=== PATIENT | male | born 1930 | race Two or more races ===

== ENCOUNTER 2017-03-30 12:11 | Inpatient (IN) | payer MEDICARE, OTHER ==
[~2017-03-30] VITALS: Ht 182.9 cm; Wt 92.5 kg
[2017-03-30 14:45] VITALS: BP 119/68
[2017-03-30] MEDS ORDERED: Z GUARD REMEDY PASTE 57 GM TUBE TOP PRN (15:30)
[2017-03-30] MEDS ORDERED: DIGO125T PO (15:51)
[2017-03-30] MEDS ORDERED: RASA1TAB PO (15:51)
[2017-03-30] MEDS ORDERED: CALC-246 PO (15:51)
[2017-03-30] MEDS ORDERED: SITA50TA PO (15:51)
[2017-03-30] MEDS ORDERED: WARF10TA2 PO (15:51)
[2017-03-30] MEDS ORDERED: CARB-93 PO (15:51)
[2017-03-30] MEDS ORDERED: INSU100V10 SQ (15:51)
[2017-03-30] MEDS ORDERED: ROSU20TA PO (15:51)
[2017-03-30] MEDS ORDERED: VITA-85A PO (15:51)
[2017-03-30] MEDS ORDERED: MV-M1TAB38 PO (15:51)
[2017-03-30] MEDS ORDERED: GLIM4TAB3 PO (15:51)
--- NOTE | 2017-03-30 18:55 | NUR ---
pt arrived at 1425 @ acute rehab unit on a gurney with daughter arely parham. pt vitals assessed. Bp 119/68 Temp 98.4 RR 22 02 sat 96 with 2L oxygen. pt no sign of acute distress. all belongings and medications reconciled. NIH stroke, rehab physical and initail assessment. core measures initiated. vte pumps applied. family will stay to the night. consent signs for overnight stay. will continue to endorse orders to venetian blind worker nurse.
[2017-03-30] MEDS ORDERED: WARFARIN SODIUM 7.5 MG TABLET PO SCH (19:00)
[2017-03-30 20:00] VITALS: BP 130/77
[2017-03-30] MEDS: IV D5 1/2 NS 1000 ML 1,000 ML IV PRN (21:38)
[2017-03-30] MEDS: ATORVASTATIN 10 MG TABLET PO SCH (21:44)
--- NOTE | 2017-03-31 05:21 | NUR ---
PATIENT SLEPT MOST OF THE NIGHT, NO SOB NO CHEST PAIN, NO COMPLAIN OF PAIN AT THIS TIME, CONT IV HYDRATION NO COUGHING, NO CONGESTION NOTED, TURN AND REPOSITION, INCONTINENT OF BLADDER, KEPT CLEAN AND DRY, DAUGHTER STAY OVERNIGHT, CONT TO MONITOR.
[2017-03-31 06:53] LABS: EOSINOPHILS # (AUTO) 0.1 K/uL (0.0-0.7); EOSINOPHILS % (AUTO) 0.3 % (0.0-7.0); HEMATOCRIT 37.5 % (40-50); HEMOGLOBIN 12.7 G/DL (14.0-18.0); LYMPHOCYTES # (AUTO) 1.7 K/UL (0.8-4.8); LYMPHOCYTES % (AUTO) 9.1 % (20.5-51.5); MEAN CORPUSCULAR HEMOGLOBIN 33.6 UUG (27.0-31.0); MEAN CORPUSCULAR HGB CONC 34 g/dL (32.0-37.0); MEAN CORPUSCULAR VOLUME 99.5 FL (82.0-92.0); MONOCYTES # (AUTO) 1.3 K/UL (0.1-1.30); MONOCYTES % (AUTO) 7.1 % (0.0-11.0); NEUTROPHILS # (AUTO) 15.8 K/UL (1.8-8.9); NEUTROPHILS % (AUTO) 83.5 % (38.5-71.5); PLATELET COUNT (AUTO) 125 K/UL (150-450); RED BLOOD CELL COUNT(AUTO) 3.77 MIL/UL (4.7-6.1); WHITE BLOOD COUNT (AUTO) 18.9 K/UL (4.0-11.2)
[2017-03-31 07:00] VITALS: BP 125/59
[2017-03-31 07:21] LABS: ALANINE AMINOTRANSFERASE 53 U/L (16-63); ASPARTATE AMINOTRANSFERASE 29 U/L (15-37); BILIRUBIN,TOTAL 0.9 mg/dL (0.2-1.0); CARBON DIOXIDE 25 mmol/L (21-32); CHLORIDE 99 mmol/L (98-107); CHOLESTEROL 114 mg/dL (<200); CREATININE 0.8 mg/dL (0.6-1.3); GLUCOSE 166 mg/dL (74-106); HDL CHOLESTEROL 44 mg/dL (40-60); MAGNESIUM 2.1 mg/dL (1.8-2.4); PHOSPHOROUS 2.7 mg/dL (2.5-4.9); POTASSIUM 3.6 mmol/L (3.5-5.1); TRIGLYCERIDES 90 MG/DL (30-150); UREA NITROGEN, BLOOD 9 mg/dL (7-18)
--- NOTE | 2017-03-31 07:31 | NUR ---
PATIENT OWN PHYSICIAN DR DAVIS CAME IN THE MENTIONED THAT PATIENT NEEDS TO BE ON ACCUCHECKS, AND SAID PATIENT BLOOD SUGAR SHOULD BE BELOW 150, CHECKED BLOOD SUGAR IS 138, ENDORSED TO ALIE TO OBTAINED ORDER FOR ACCUCHECK AND COVERAGE.
--- NOTE | 2017-03-31 07:45 | NUR ---
RECEIVED PATIENT ASLEEP, NON-LABORED BREATHING. WITH O2 AT 2 LPM. WITH IVF INFUSING WELL OVER LEFT WRIST G20. WITH DAUGHTER AT BEDSIDE.
[2017-03-31] MEDS: GLIMEPIRIDE 4 MG TABLET PO SCH ×2 (07:50→17:52)
[2017-03-31 07:51] LABS: ALKALINE PHOSPHATASE 60 U/L (50-136)
[2017-03-31] MEDS: ACETAMINOPHEN 325 MG TABLET PO PRN ×2 (08:13→18:52)
[2017-03-31] MEDS: CARBIDOPA/LEVODOPA 25-100MG TABLET PO SCH ×4 (08:13→20:57)
[2017-03-31] MEDS: DIGOXIN 125 MCG TABLET PO SCH (08:13)
[2017-03-31] MEDS: VITAMIN B COMPLEX 1 TABLET PO SCH (08:13)
[2017-03-31] MEDS: LINAGLIPTIN 5 MG TABLET PO SCH (08:13)
[2017-03-31] MEDS ORDERED: SITAGLIPTIN PHOSPHATE 50 MG TABLET PO SCH (09:00)
[2017-03-31] MEDS ORDERED: [UNRECOGNIZED DRUG - OTHER] PO SCH (09:00)
--- NOTE | 2017-03-31 09:00 | NUR ---
PATIENT LETHARGIC, WAKES UP WITH TOUCH AND PAINFUL STIMULUS. SEEN AND EXAMINED BY DR. MOCTEZUMA ORDERED COUMADIN TO BE D/C. WAS ABLE TO TOLERATE MEDICATIONS WITH APPLE SAUCE.
[2017-03-31] MEDS ORDERED: ASPIRIN EC 325 MG TABLET.DR PO SCH (10:00)
[2017-03-31] MEDS ORDERED: DEXTROSE 50% 50 ML DISP.SYRIN IV PRN (10:45)
[2017-03-31] MEDS ORDERED: CYANOCOBALAMIN 1000 MCG/ML VIAL IM SCH (10:45)
[2017-03-31] MEDS: ASPIRIN 325 MG TABLET PO SCH (10:51)
--- NOTE | 2017-03-31 11:30 | NUR ---
IV DISLODGED AND DISCONTINUED. INSERTED NEW IV G 22 OVER LEFT FORE-ARM. PATENT AND INFUSING WELL.
[2017-03-31] MEDS: BLOOD SUGAR DIAGNOSTIC 1 EACH STRIP VI SCH ×3 (11:48→22:00)
[2017-03-31] MEDS: CYANOCOBALAMIN 1000 MCG/ML VIAL IM SCH (12:14)
[2017-03-31] MEDS: [UNRECOGNIZED DRUG - OTHER] PO SCH (13:00)
[2017-03-31] MEDS: OCUVITE WITH LUTEIN PO SCH (13:00)
[2017-03-31] MEDS: RASAGILINE MESYLATE 1 MG PO SCH (13:23)
--- NOTE | 2017-03-31 13:29 | NUR ---
DAUGHTER REFUSED OCUVITE TO BE GIVEN AND SAID MAYBE TOMORROW WHEN HE IS STRONGER. DISCUSSED RISKS AND BENEFITS BUT DAUGHTER REFUSED TO BE GIVEN TO PATIENT.
--- NOTE | 2017-03-31 13:57 | NUR ---
Aircraft Structural Repairer SW met with patient at beside to assess pt needs and provide support. The patient is an 87 male admitted s/p stroke and admitted to admitted to ARU due to significant functional decline and ambulation impairment. The patient was laying in his bed during the assessment. He was unable to participate in the interview, therefore information was obtained by the patients daughter/DPOA Yue Carl . Per daughter, the patient will return home with her at [address] [facility] [place] [address]; . The patient and daughter acknowledged his condition and the need for intervention. Social history: The patient was born and raised in [place] and grew up with his parents. He was two times, his first marriage ended in divorce after 18 years and his second in 2009 after being for 35 years. The patient has 4 children from his first marriage and an adopted child from his first 's previous marriage. The patient has 2 bacherlors degrees and 1 masters degree. 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 Per daughter, the patient has an advanced healthcare directive and is full code. The patients daughter denied any history of abuse or domestic violence for the patient. SW engaged in active listening and provided supportive counseling during the interview to address patient's depressive symptoms related to his decline in functioning. SW will continue to address issues of loss related to recent hospitalization. SW will encourage compliance with rehab goals. SW will be available as needed.
--- NOTE | 2017-03-31 14:15 | NUR ---
IV DISLODGED DURING PHYSICAL THERAPY.
[2017-03-31 18:20] LABS: *BLOOD, URINE 3+ (NEGATIVE); *COLOR,URINE Brown (YELLOW); *KETONES,URINE 2+ (NEGATIVE); NITRITE, URINE NEGATIVE (NEGATIVE); PH,URINE 5.5 (5.0-8.0); UGLUCOSE NEGATIVE (NEGATIVE)
[2017-03-31 18:38] LABS: *BILIRUBIN,URIN NEGATIVE (NEGATIVE); *CLARITY,URINE TURBID (CLEAR); *PROTEIN,URINE 2+ (NEGATIVE); LEUKOCYTE ESTERASE ,URINE 2+ (NEGATIVE)
[2017-03-31 18:42] LABS: BACTERIA,URINE MANY /HPF (NONE SEEN); MUCUS,URINE MANY /LPF (0-FEW); RBC,URINE 20-50 /HPF (0-3); WBC,URINE TNTC /HPF (0-3)
--- NOTE | 2017-03-31 19:00 | NUR ---
PAIN OVER SHOULDER RATED 6/10. TYLENOL PRN GIVEN.
[2017-03-31] MEDS ORDERED: LIDOCAINE HCL 1% 20 ML VIAL IJ PRN (19:30)
[2017-03-31 20:00] VITALS: BP 109/63
[2017-03-31] MEDS: ATORVASTATIN 10 MG TABLET PO SCH (20:57)
[2017-03-31] MEDS: CEFTRIAXONE 1 G in IV DEXTROSE 5% 50 ML IV SCH (20:57)
[2017-03-31] MEDS: IV D5 1/2 NS 1000 ML 1,000 ML IV PRN (20:58)
[2017-04-01] MEDS: BLOOD SUGAR DIAGNOSTIC 1 EACH STRIP VI SCH ×4 (06:41→21:37)
--- NOTE | 2017-04-01 07:45 | NUR ---
Received patient asleep, with daughter at bedside. With IV infusing well over left hand. Wakes up with touch and painful stimulus. Not in any form of distress. VSS. O2 at 2 LPM
[2017-04-01] MEDS: INSULIN REGULAR, HUMAN 300 UNIT/3 ML VIAL SQ PRN ×3 (07:50→17:36)
[2017-04-01] MEDS: GLIMEPIRIDE 4 MG TABLET PO SCH ×2 (07:51→17:38)
[2017-04-01 07:58] VITALS: BP 127/70
[2017-04-01] MEDS: ASPIRIN 325 MG TABLET PO SCH (09:00)
[2017-04-01] MEDS: CYANOCOBALAMIN 1000 MCG/ML VIAL IM SCH (09:00)
[2017-04-01] MEDS: LINAGLIPTIN 5 MG TABLET PO SCH (09:01)
[2017-04-01] MEDS: CARBIDOPA/LEVODOPA 25-100MG TABLET PO SCH ×3 (09:01→21:14)
[2017-04-01] MEDS: RASAGILINE MESYLATE 1 MG PO SCH (09:01)
[2017-04-01] MEDS: VITAMIN B COMPLEX 1 TABLET PO SCH (09:01)
[2017-04-01] MEDS: DIGOXIN 125 MCG TABLET PO SCH (09:02)
[2017-04-01] MEDS: [UNRECOGNIZED DRUG - OTHER] PO SCH (09:30)
[2017-04-01] MEDS: OCUVITE WITH LUTEIN PO SCH (09:30)
--- NOTE | 2017-04-01 10:23 | NUR ---
Up with OT. IV held for therapy
--- NOTE | 2017-04-01 13:18 | NUR ---
Up with physical therapy, alert and oriented. Still with slurred speech. With poor appetite. With dysuria, informed Dr. Otero. DAISY held for PT
--- NOTE | 2017-04-01 14:07 | NUR ---
REHAB TEAM CONFERENCE 04/01/17
--- NOTE | 2017-04-01 14:30 | NUR ---
RESUMED IVF. PATIENT TOLERATED THERAPY WELL. WAS EXHAUSTED. SLEEPING NOW AT BED. NON-LABORED BREATHING.
[2017-04-01] MEDS: PHENAZOPYRIDINE HCL 100 MG TABLET PO SCH ×2 (17:53→21:14)
--- NOTE | 2017-04-01 18:55 | NUR ---
For MRI in [place], as ordered by Dr Fuller. Transported via ambulance with stable V/S. Alert and oriented. With patent IV G 22 over left hand.
[2017-04-01] MEDS: PATIENT MAY USE OWN MED- MD OK PO SCH (21:00)
[2017-04-01] MEDS: CEFTRIAXONE 1 G in IV DEXTROSE 5% 50 ML IV SCH (21:12)
[2017-04-01] MEDS: METOPROLOL TARTRATE 25 MG TABLET PO SCH (21:13)
[2017-04-01] MEDS: ATORVASTATIN 10 MG TABLET PO SCH (21:14)
[2017-04-01] MEDS: ACETAMINOPHEN 325 MG TABLET PO PRN (21:30)
[2017-04-01 21:37] VITALS: BP 118/61
--- NOTE | 2017-04-01 22:33 | NUR ---
result from MRI reported to Dr. Otero but no order, left a message to Dr. Hoover ([phone]) reported by Dr. Zelaya: area of infarct bigger 6x6,compared to last exam 03/28, otherwise no evidence of hemorrhagic conversion at this time. Addendum: 04/01/17 at 2240 by KATY MOHR RN called [facility] neurology dept but office is closed ([phone]) will call in am.
[2017-04-01] MEDS: IV D5 1/2 NS 1000 ML 1,000 ML IV PRN (23:11)
--- NOTE | 2017-04-02 04:00 | NUR ---
iv kept alarming downstream occlusion but flushes ok, daughter and pt unable to sleep, iv held till am 0600 resume infusion so pt would be able to sleep, no sign of infiltration secured with tape.
--- NOTE | 2017-04-02 06:30 | NUR ---
no significant changes overnight incontinent x3 of urine,no bm.continue with ivf.vss,afebrile,meidcated x1 with tylenol for neck pain with good relief.
[2017-04-02] MEDS: PHENAZOPYRIDINE HCL 100 MG TABLET PO SCH ×3 (06:43→21:19)
[2017-04-02] MEDS: BLOOD SUGAR DIAGNOSTIC 1 EACH STRIP VI SCH ×4 (06:45→21:17)
--- NOTE | 2017-04-02 07:15 | NUR ---
PT IS ALERT AND ORIENTEDX3, PT IS CALM. LEFT SIDE WEAKNESS IS NOTED. PT IS UNABLE TO FEEL HIS LEFT SIDE. DR FROST IS MADE AWARE. DR FROST TALKED TO THE PT AND FAMILY. LEFT HAND IS SWOLLEN FROM IV BEING INFILTRATED. REMOVED THE IV. PUT A NEW ONE. ELEVATED THE EXTREMITY, ALTERNATED COLD AND WARM PACKS THROUGHOUT THE SHIFT. NO OPEN WOUNDS NOTED. IV INTACT/PATENT. NO PAIN NOTED. ALL SAFETY NEEDS ARE MET. DAUGHTER BY THE BEDSUIDE, PT IS ON RA, NO S/S OF RESPIRATORY DISTRESS NOTED.
[2017-04-02 07:42] LABS: BASOPHILS # (AUTO) 0.1 K/uL (0.0-8.0); EOSINOPHILS # (AUTO) 0.2 K/uL (0.0-0.7); EOSINOPHILS % (AUTO) 1.7 % (0.0-7.0); HEMOGLOBIN 12.9 G/DL (14.0-18.0); LYMPHOCYTES # (AUTO) 1.2 K/UL (0.8-4.8); LYMPHOCYTES % (AUTO) 9.3 % (20.5-51.5); MEAN CORPUSCULAR HEMOGLOBIN 33.3 UUG (27.0-31.0); MEAN CORPUSCULAR HGB CONC 33 g/dL (32.0-37.0); MONOCYTES # (AUTO) 0.5 K/UL (0.1-1.30); MONOCYTES % (AUTO) 3.7 % (0.0-11.0); NEUTROPHILS # (AUTO) 11.1 K/UL (1.8-8.9); NEUTROPHILS % (AUTO) 84.3 % (38.5-71.5); PLATELET COUNT (AUTO) 149 K/UL (150-450); RED BLOOD CELL COUNT(AUTO) 3.87 MIL/UL (4.7-6.1); WHITE BLOOD COUNT (AUTO) 13.1 K/UL (4.0-11.2)
[2017-04-02 08:34] LABS: ALANINE AMINOTRANSFERASE 22 U/L (16-63); ALKALINE PHOSPHATASE 86 U/L (50-136); ASPARTATE AMINOTRANSFERASE 26 U/L (15-37); BILIRUBIN,TOTAL 0.7 mg/dL (0.2-1.0); CARBON DIOXIDE 27 mmol/L (21-32); CHLORIDE 101 mmol/L (98-107); CREATININE 0.8 mg/dL (0.6-1.3); GLUCOSE 133 mg/dL (74-106); PHOSPHOROUS 2.8 mg/dL (2.5-4.9); POTASSIUM 3.1 mmol/L (3.5-5.1); UREA NITROGEN, BLOOD 9 mg/dL (7-18)
[2017-04-02 08:50] VITALS: BP 122/71
[2017-04-02] MEDS: GLIMEPIRIDE 4 MG TABLET PO SCH ×2 (08:55→18:00)
[2017-04-02] MEDS: DIGOXIN 125 MCG TABLET PO SCH (08:56)
[2017-04-02] MEDS: ASPIRIN 325 MG TABLET PO SCH (08:56)
[2017-04-02] MEDS: CYANOCOBALAMIN 1000 MCG/ML VIAL IM SCH (08:56)
[2017-04-02] MEDS: METOPROLOL TARTRATE 25 MG TABLET PO SCH ×2 (08:57→21:20)
[2017-04-02] MEDS: [UNRECOGNIZED DRUG - OTHER] PO SCH (08:58)
[2017-04-02] MEDS: OCUVITE WITH LUTEIN PO SCH (08:58)
[2017-04-02] MEDS: LINAGLIPTIN 5 MG TABLET PO SCH (08:59)
[2017-04-02] MEDS: RASAGILINE MESYLATE 1 MG PO SCH (08:59)
[2017-04-02] MEDS: VITAMIN B COMPLEX 1 TABLET PO SCH (09:00)
[2017-04-02] MEDS: LIDOCAINE 5% PATCH TD SCH (10:07)
[2017-04-02] MEDS: CARBIDOPA/LEVODOPA 25-100MG TABLET PO SCH ×3 (10:07→21:18)
--- NOTE | 2017-04-02 12:04 | NUR ---
Patient and family complains of foot drop of patient. Dr. Littlejohn aware, spoke to PT therapist regarding interventions. Provolone boot ordered to keep foot from dropping. No other incidents with patient.
[2017-04-02] MEDS: INSULIN REGULAR, HUMAN 300 UNIT/3 ML VIAL SQ PRN ×3 (13:14→21:25)
[2017-04-02] MEDS ORDERED: BARIUM SULFATE 148 GM SUSP.RECON PO ONE (14:00)
[2017-04-02] MEDS ORDERED: BARIUM SULFATE 240 ML ORAL.SUSP PO ONE (14:00)
[2017-04-02] MEDS ORDERED: POTASSIUM CHLORIDE 20 MEQ TAB.PRT.SR PO ONE ×2 (16:00→19:00)
[2017-04-02] MEDS: ACETAMINOPHEN 325 MG TABLET PO PRN (18:17)
--- NOTE | 2017-04-02 19:00 | NUR ---
PT IS LAYING IN BED COMFORTABLY. NO CHANGES NOTED. EXTREMITY IS ELEVATED, WARM PACK IS ON. MEDICATED FOR PAIN 4/10 RIGHT THIGH. ALL SAFETY NEEDS ARE MET.
--- NOTE | 2017-04-02 19:30 | NUR ---
Received patient in bed with HOB elevated. Alert and verbally responsive. Able to make needs known. Daughter Fátima at bedside. No acute distress noted. No SOB. Right hand with IV site. Patent and Intact. Infusing D5 1/2 NS continuously. Kept clean and dry. All needs attended to promptly. Call light is within reach. Will continue to monitor.
[2017-04-02] MEDS ORDERED: LIDOCAINE 5% PATCH TD ONE ×2 (20:30→21:15)
--- NOTE | 2017-04-02 20:30 | NUR ---
NON-ADMIN MED Lidocaine 5% patch 16H on, 8H off not administered. Per pharmacy they want to verify orders with doctor.
--- NOTE | 2017-04-02 20:30 | NUR ---
Dr. Littlejohn in facility examined patient and made new orders for Lidocaine 1 patch 1x now. Patient c/o pain on right neck. MD also ordered for Lidocaine 2 patches q24H 16h on 8h off. New orders acknowledged and carried out. Pharmacy made aware.
[2017-04-02] MEDS: PATIENT MAY USE OWN MED- MD OK PO SCH (21:17)
[2017-04-02] MEDS: ATORVASTATIN 10 MG TABLET PO SCH (21:20)
[2017-04-02] MEDS: CEFTRIAXONE 1 G in IV DEXTROSE 5% 50 ML IV SCH (21:22)
[2017-04-02 21:44] VITALS: BP 117/66
[2017-04-02] MEDS ORDERED: diphenhydrAMINE 25 MG CAP PO ONE ×2 (21:58→22:29)
[2017-04-02] MEDS: CLOTRIMAZOLE 1% CREAM 30 GM TUBE TOP SCH (22:00)
--- NOTE | 2017-04-02 22:00 | NUR ---
Patient c/o itching on back. Back noted with redness and red spots. Dr. Otero on unit made aware and examined patient. New orders noted and carried out. Clotrimazole 1% cream faxed over to nursing tool machine shop supervisor. Awaiting medication. All needs attended to promptly. Call light within reach. Will continue to monitor. Addendum: 04/03/17 at 0000 by FELISHA VANCE RN Per nursing tool machine shop supervisor, Lotrimin cream is not available at this time. Medication not given. Will make family aware.
[2017-04-02] MEDS: IV D5 1/2 NS 1000 ML 1,000 ML IV PRN (22:28)
[2017-04-03] MEDS: BLOOD SUGAR DIAGNOSTIC 1 EACH STRIP VI SCH ×4 (06:47→21:16)
[2017-04-03] MEDS: PHENAZOPYRIDINE HCL 100 MG TABLET PO SCH (06:50)
--- NOTE | 2017-04-03 07:05 | NUR ---
Pt received in bed, no distress noted. HOB elevated, NC at 2L, No resp distress. Daughter is at bedside. IV to Right hand intact and patent. NO s/s of infection, no infiltration noted. Plan of care discussed, bed kept low locked, Side rais up x2, Call light within reach.
[2017-04-03] MEDS: INSULIN REGULAR, HUMAN 300 UNIT/3 ML VIAL SQ PRN ×3 (08:07→17:20)
[2017-04-03 08:08] VITALS: BP 125/71
[2017-04-03] MEDS: METOPROLOL TARTRATE 25 MG TABLET PO SCH ×2 (08:08→21:04)
[2017-04-03] MEDS: LIDOCAINE 5% PATCH TD SCH ×4 (08:09→21:05)
[2017-04-03] MEDS: ASPIRIN 325 MG TABLET PO SCH (08:09)
[2017-04-03] MEDS: GLIMEPIRIDE 4 MG TABLET PO SCH ×2 (08:09→17:17)
[2017-04-03] MEDS: DIGOXIN 125 MCG TABLET PO SCH (08:09)
[2017-04-03] MEDS: LINAGLIPTIN 5 MG TABLET PO SCH (08:09)
[2017-04-03] MEDS: CARBIDOPA/LEVODOPA 25-100MG TABLET PO SCH ×3 (08:09→21:03)
[2017-04-03] MEDS: CYANOCOBALAMIN 1000 MCG/ML VIAL IM SCH ×2 (08:10→08:32)
[2017-04-03] MEDS: OCUVITE WITH LUTEIN PO SCH (08:12)
[2017-04-03] MEDS: [UNRECOGNIZED DRUG - OTHER] PO SCH (08:12)
[2017-04-03] MEDS: RASAGILINE MESYLATE 1 MG PO SCH (08:12)
[2017-04-03] MEDS: VITAMIN B COMPLEX 1 TABLET PO SCH (08:12)
[2017-04-03] MEDS: CLOTRIMAZOLE 1% CREAM 30 GM TUBE TOP SCH ×2 (17:18→21:04)
--- NOTE | 2017-04-03 17:20 | NUR ---
Pt in bed, no distress noted. Accu check 151 with 2 units of Regular insulin given. Pt's daughter is requesting to D/C IV fluids, and IV antibiotics. Dr. Otero was made aware.
--- NOTE | 2017-04-03 18:46 | NUR ---
PT seen by Dr. Otero received orders to d/c IVF and d/c IV antibiotics. Start pt on Levaquin 500mg PO q24hrs. Dr. Otero discussed plan of care with pt and daughter.
[2017-04-03] MEDS: LEVOFLOXACIN 500 MG TABLET PO SCH (18:55)
--- NOTE | 2017-04-03 19:03 | NUR ---
IV fluids discontinued, Levaquin 500mg PO given. Pt educated by on Vit 12 injection and pt agree to take medication tomorrow morning. made aware of med not given this morning, daugher refused.
[2017-04-03] MEDS: PATIENT MAY USE OWN MED- MD OK PO SCH (21:00)
[2017-04-03] MEDS: ATORVASTATIN 10 MG TABLET PO SCH (21:02)
[2017-04-03 21:18] VITALS: BP 120/75
--- NOTE | 2017-04-04 06:30 | NUR ---
pt 's daughter says ,pt had nightmare last night didn't have good sleep, right neck pain remains the same ,lidoderm patch applied last night till this morning, per daughter he didn't get his patch in am. with good relief per pt, tolerating well with meds in apple sauce and thin liquid, no coughing noted.incontinent, vss,afebrile, all needs attended kept clean and dry.
[2017-04-04] MEDS: BLOOD SUGAR DIAGNOSTIC 1 EACH STRIP VI SCH ×4 (06:41→20:13)
[2017-04-04] MEDS: ACETAMINOPHEN 325 MG TABLET PO PRN ×2 (06:43→12:10)
--- NOTE | 2017-04-04 07:05 | NUR ---
Patient received from shift coordinator, resting comfortably in bed, no signs of acute distress noted. VS WNL, no complaints of pain at this time. No other verbalized needs at this time, family observed at bedside, no needs noted. Safety and fall precautions maintained, call light within reach.
[2017-04-04] MEDS: GLIMEPIRIDE 4 MG TABLET PO SCH ×2 (11:00→17:15)
[2017-04-04] MEDS: CYANOCOBALAMIN 1000 MCG/ML VIAL IM SCH (11:00)
[2017-04-04] MEDS: ASPIRIN 325 MG TABLET PO SCH (11:00)
[2017-04-04] MEDS: DIGOXIN 125 MCG TABLET PO SCH (11:01)
[2017-04-04] MEDS: VITAMIN B COMPLEX 1 TABLET PO SCH (11:01)
[2017-04-04] MEDS: METOPROLOL TARTRATE 25 MG TABLET PO SCH ×2 (11:01→20:11)
[2017-04-04] MEDS: OCUVITE WITH LUTEIN PO SCH (11:01)
[2017-04-04] MEDS: [UNRECOGNIZED DRUG - OTHER] PO SCH (11:01)
[2017-04-04] MEDS: CARBIDOPA/LEVODOPA 25-100MG TABLET PO SCH ×3 (11:02→20:11)
[2017-04-04] MEDS: RASAGILINE MESYLATE 1 MG PO SCH (11:02)
[2017-04-04] MEDS: LIDOCAINE 5% PATCH TD SCH (11:02)
[2017-04-04] MEDS: LINAGLIPTIN 5 MG TABLET PO SCH (11:02)
[2017-04-04] MEDS: CLOTRIMAZOLE 1% CREAM 30 GM TUBE TOP SCH ×2 (11:02→21:21)
[2017-04-04] MEDS: INSULIN REGULAR, HUMAN 300 UNIT/3 ML VIAL SQ PRN (12:12)
[2017-04-04] MEDS: LEVOFLOXACIN 500 MG TABLET PO SCH (18:28)
[2017-04-04 20:00] VITALS: BP 115/64
[2017-04-04] MEDS: ATORVASTATIN 10 MG TABLET PO SCH (20:10)
[2017-04-04] MEDS ORDERED: TRAZODONE 50 MG TABLET PO SCH (21:00)
[2017-04-04] MEDS: PATIENT MAY USE OWN MED- MD OK PO SCH (21:00)
[2017-04-04] MEDS ORDERED: TRAZODONE 50 MG TABLET GT SCH (21:00)
[2017-04-04 21:39] VITALS: BP 115/64
[2017-04-05] MEDS: ACETAMINOPHEN 325 MG TABLET PO PRN ×2 (00:08→10:18)
[2017-04-05] MEDS: BLOOD SUGAR DIAGNOSTIC 1 EACH STRIP VI SCH ×4 (06:09→20:48)
--- NOTE | 2017-04-05 06:59 | NUR ---
pt had trazadone 25mg last night but still unable to sleep ,incontinent of bladder had x5 diaper change. no bm . all needs attended,call light at reached.
[2017-04-05 07:13] LABS: BASOPHILS % (AUTO) 0.2 % (0.0-2.0); EOSINOPHILS # (AUTO) 0.3 K/uL (0.0-0.7); EOSINOPHILS % (AUTO) 2.7 % (0.0-7.0); HEMATOCRIT 36.6 % (40-50); HEMOGLOBIN 12.3 G/DL (14.0-18.0); LYMPHOCYTES # (AUTO) 1.5 K/UL (0.8-4.8); LYMPHOCYTES % (AUTO) 13.6 % (20.5-51.5); MEAN CORPUSCULAR HEMOGLOBIN 33.7 UUG (27.0-31.0); MEAN CORPUSCULAR HGB CONC 34 g/dL (32.0-37.0); MEAN CORPUSCULAR VOLUME 100.4 FL (82.0-92.0); MONOCYTES # (AUTO) 0.4 K/UL (0.1-1.30); MONOCYTES % (AUTO) 3.2 % (0.0-11.0); NEUTROPHILS # (AUTO) 8.9 K/UL (1.8-8.9); NEUTROPHILS % (AUTO) 80.3 % (38.5-71.5); RED BLOOD CELL COUNT(AUTO) 3.64 MIL/UL (4.7-6.1); WHITE BLOOD COUNT (AUTO) 11.1 K/UL (4.0-11.2)
[2017-04-05] MEDS ORDERED: TRAZODONE 50 MG TABLET PO SCH ×3 (07:14→21:00)
[2017-04-05 07:18] LABS: ALANINE AMINOTRANSFERASE 28 U/L (16-63); ALKALINE PHOSPHATASE 83 U/L (50-136); ASPARTATE AMINOTRANSFERASE 41 U/L (15-37); BILIRUBIN,TOTAL 0.6 mg/dL (0.2-1.0); CARBON DIOXIDE 26 mmol/L (21-32); CHLORIDE 106 mmol/L (98-107); CREATININE 0.8 mg/dL (0.6-1.3); GLUCOSE 96 mg/dL (74-106); MAGNESIUM 1.7 mg/dL (1.8-2.4); PHOSPHOROUS 3.4 mg/dL (2.5-4.9); POTASSIUM 3.3 mmol/L (3.5-5.1); TOTAL PROTEIN, SERUM 7.4 g/dL (6.4-8.2); UREA NITROGEN, BLOOD 10 mg/dL (7-18)
[2017-04-05 07:21] LABS: PLATELET COUNT (AUTO) 196 K/UL (150-450)
[2017-04-05 07:30] VITALS: BP 118/81
--- NOTE | 2017-04-05 07:30 | NUR ---
RECIEVED PT IN BED, HOB UP AT 30DEGREES. AWAKE, ALERT AND ORIENTEDX3. FACE IS EVEN AND SYMMETRICAL. RIGHT EYE IS SMALLER THAN LEFT. DENIES BLURRING OF VISION. SPEECH IS CLEAR AND PT FOLLOWS COMMANDS. PT HAS LEFT HEMIPARESIS FROM A RECENT ACUTE STROKE. NO APPARENT RESPIRATORY DISTRESS NOTED. AFEBRILE.
--- NOTE | 2017-04-05 08:30 | NUR ---
VSS. PT IS REQUESTINGTO HAVE AN EARLY SPONGE BATH. REPOSITION TO SIDE.
--- NOTE | 2017-04-05 10:00 | NUR ---
PT PLACED UP ON THE WHEELCHAR BY FITZ AMIN MAXIMUM ASSIST. ATE HIS BREAKFAST AND TOLERATING WELL. SWALLOWS THE FOOD WELL.
[2017-04-05] MEDS: CARBIDOPA/LEVODOPA 25-100MG TABLET PO SCH ×3 (10:17→21:00)
[2017-04-05] MEDS: ASPIRIN 325 MG TABLET PO SCH (10:18)
[2017-04-05] MEDS: DIGOXIN 125 MCG TABLET PO SCH (10:19)
[2017-04-05] MEDS: METOPROLOL TARTRATE 25 MG TABLET PO SCH ×2 (10:19→20:57)
[2017-04-05] MEDS: CYANOCOBALAMIN 1000 MCG/ML VIAL IM SCH (10:20)
[2017-04-05] MEDS: LIDOCAINE 5% PATCH TD SCH (10:21)
[2017-04-05] MEDS: CLOTRIMAZOLE 1% CREAM 30 GM TUBE TOP SCH ×2 (10:22→21:11)
[2017-04-05] MEDS: OCUVITE WITH LUTEIN PO SCH (10:28)
[2017-04-05] MEDS: [UNRECOGNIZED DRUG - OTHER] PO SCH (10:28)
[2017-04-05] MEDS: RASAGILINE MESYLATE 1 MG PO SCH (10:28)
[2017-04-05] MEDS: LINAGLIPTIN 5 MG TABLET PO SCH (10:29)
[2017-04-05] MEDS ORDERED: TEMAZEPAM 7.5 MG CAPSULE PO PRN (12:00)
[2017-04-05] MEDS: GLIMEPIRIDE 4 MG TABLET PO SCH ×2 (12:29→17:46)
[2017-04-05] MEDS: VITAMIN B COMPLEX 1 TABLET PO SCH (12:29)
[2017-04-05] MEDS: INSULIN REGULAR, HUMAN 300 UNIT/3 ML VIAL SQ PRN ×2 (12:40→21:01)
[2017-04-05] MEDS ORDERED: POTASSIUM CHLORIDE 20 MEQ TAB.PRT.SR PO ONE (13:15)
[2017-04-05] MEDS ORDERED: MAGNESIUM OXIDE 400 MG TABLET PO ONE (13:15)
[2017-04-05] MEDS: HYDROCODONE/APAP 5-325MG TABLET PO PRN (17:46)
[2017-04-05] MEDS: LEVOFLOXACIN 500 MG TABLET PO SCH (18:50)
--- NOTE | 2017-04-05 19:00 | NUR ---
RECEIVED PATIENT IN BED, AWAKE, NO SOB NO CHEST PAIN NOTED, KEPT CLEAN AND DRY, DAUGHTER AT BEDSIDE. NO COMPLAIN OF ANY OTHER PAIN, KEPT CLEAN AND DRY, CONT TO MONITOR.
[2017-04-05] MEDS: ATORVASTATIN 10 MG TABLET PO SCH (20:57)
[2017-04-05] MEDS ORDERED: TRAZODONE 50 MG TABLET GT SCH (21:00)
[2017-04-05] MEDS: TRAZODONE 50 MG TABLET PO SCH (21:00)
[2017-04-05] MEDS: PATIENT MAY USE OWN MED- MD OK PO SCH (21:11)
--- NOTE | 2017-04-05 21:12 | NUR ---
PATIENT MEDICATION SINEMET DOSE AT 2100 NOT GIVEN DUE TO PATIENT JUST TOOK THE AM DOSE OF SINEMET AT 1900
[2017-04-05 21:49] VITALS: BP 110/59
--- NOTE | 2017-04-06 05:13 | NUR ---
PATIENT SLEPT MOST OF THE NIGHT, NO SOB NO CHEST PAIN, NO COMPLAIN OF PAIN, NO S/S OF HYPOGLYCEMIA, TURN AND REPOSITION, KEPT CLEAN DRY AND COMFORTABLE.
[2017-04-06] MEDS: BLOOD SUGAR DIAGNOSTIC 1 EACH STRIP VI SCH ×4 (06:11→21:48)
[2017-04-06 08:00] VITALS: BP 120/63
--- NOTE | 2017-04-06 08:00 | NUR ---
Received patient awake in bed, alert, verbally responsive, not in any form of acute distress. He denies any pain or discomfort at this time. Call light placed within reach. Assisted to his needs. Daughter at bedside.
[2017-04-06] MEDS: CARBIDOPA/LEVODOPA 25-100MG TABLET PO SCH ×3 (09:00→21:38)
[2017-04-06] MEDS: GLIMEPIRIDE 4 MG TABLET PO SCH ×2 (09:03→18:22)
[2017-04-06] MEDS: METOPROLOL TARTRATE 25 MG TABLET PO SCH ×2 (09:03→21:00)
[2017-04-06] MEDS: CYANOCOBALAMIN 1000 MCG/ML VIAL IM SCH (09:04)
[2017-04-06] MEDS: ASPIRIN 325 MG TABLET PO SCH (09:04)
[2017-04-06] MEDS: DIGOXIN 125 MCG TABLET PO SCH (09:04)
[2017-04-06] MEDS: LINAGLIPTIN 5 MG TABLET PO SCH (09:04)
[2017-04-06] MEDS: LIDOCAINE 5% PATCH TD SCH (09:06)
[2017-04-06] MEDS: OCUVITE WITH LUTEIN PO SCH (09:07)
[2017-04-06] MEDS: RASAGILINE MESYLATE 1 MG PO SCH (09:07)
[2017-04-06] MEDS: VITAMIN B COMPLEX 1 TABLET PO SCH (09:07)
[2017-04-06] MEDS: [UNRECOGNIZED DRUG - OTHER] PO SCH (09:07)
[2017-04-06] MEDS: ACETAMINOPHEN 325 MG TABLET PO PRN (09:08)
[2017-04-06] MEDS: CLOTRIMAZOLE 1% CREAM 30 GM TUBE TOP SCH ×2 (10:14→21:56)
[2017-04-06] MEDS: INSULIN REGULAR, HUMAN 300 UNIT/3 ML VIAL SQ PRN ×2 (12:16→21:33)
[2017-04-06] MEDS ORDERED: APIXABAN 5 MG TABLET PO SCH (17:00)
[2017-04-06] MEDS: LEVOFLOXACIN 500 MG TABLET PO SCH (18:22)
[2017-04-06] MEDS: HYDROCODONE/APAP 5-325MG TABLET PO PRN (19:12)
--- NOTE | 2017-04-06 19:30 | NUR ---
Notified Dr. Otero regarding concern of patient's daughter if some of am meds could be changed to an afternoon schedule but per MD no changes.
--- NOTE | 2017-04-06 19:30 | NUR ---
Received patient in bed. Daughter at bedside. Patient is alert and verbally responsive. Able to make needs known. No c/o pain at this time. No acute distress. No SOB. Kept clean and dry. All needs attended to promptly. Call light within reach. Will continue to monitor.
[2017-04-06 20:00] VITALS: BP 106/59
[2017-04-06] MEDS: TRAZODONE 50 MG TABLET PO SCH (21:26)
[2017-04-06] MEDS: ATORVASTATIN 10 MG TABLET PO SCH (21:27)
[2017-04-06] MEDS: PATIENT MAY USE OWN MED- MD OK PO SCH (21:27)
[2017-04-07] MEDS: BLOOD SUGAR DIAGNOSTIC 1 EACH STRIP VI SCH ×4 (07:07→21:44)
[2017-04-07 07:30] VITALS: BP 118/68
--- NOTE | 2017-04-07 07:38 | NUR ---
Patient slept mostly throughout the night. Slept comfortably. Repositioned and changed as needed. No c/o pain and discomfort. No acute distress. No SOB. Kept clean and dry. All needs attended to promptly. Call light within reach. Will continue to monitor. Addendum: 04/07/17 at 0740 by FELISHA VANCE RN BS 100. No insulin needed. Endorsed to AM shift.
--- NOTE | 2017-04-07 08:27 | NUR ---
DAILY NOTE IN BED RESTING QUIETLY C/O PAIN SORE THROAT AND L EYE IS BLOODSHOT. WHOLE SCLERA IS RED. NOTIFIED MD VARGAS HE SAYS HOLD THE ELIQUIS FOR NOW AND HE WILL BE IN TO SEE THE PT
[2017-04-07] MEDS: GLIMEPIRIDE 4 MG TABLET PO SCH ×2 (08:36→17:50)
[2017-04-07] MEDS: METOPROLOL TARTRATE 25 MG TABLET PO SCH ×2 (08:38→21:48)
[2017-04-07] MEDS: DIGOXIN 125 MCG TABLET PO SCH (08:40)
[2017-04-07] MEDS: VITAMIN B COMPLEX 1 TABLET PO SCH (08:41)
[2017-04-07] MEDS: LIDOCAINE 5% PATCH TD SCH (08:41)
[2017-04-07] MEDS: CARBIDOPA/LEVODOPA 25-100MG TABLET PO SCH ×3 (08:41→21:46)
[2017-04-07] MEDS: RASAGILINE MESYLATE 1 MG PO SCH (08:43)
[2017-04-07] MEDS: [UNRECOGNIZED DRUG - OTHER] PO SCH (08:43)
[2017-04-07] MEDS: OCUVITE WITH LUTEIN PO SCH (08:43)
[2017-04-07] MEDS: LINAGLIPTIN 5 MG TABLET PO SCH (08:45)
[2017-04-07] MEDS: CYANOCOBALAMIN 1000 MCG/ML VIAL IM SCH (08:46)
[2017-04-07] MEDS ORDERED: ASPIRIN 325 MG TABLET PO SCH (09:00)
[2017-04-07] MEDS: ASPIRIN 81 MG TAB.CHEW PO SCH (09:00)
[2017-04-07] MEDS: CLOTRIMAZOLE 1% CREAM 30 GM TUBE TOP SCH ×2 (10:48→21:59)
[2017-04-07] MEDS: HYDROCODONE/APAP 5-325MG TABLET PO PRN (18:00)
--- NOTE | 2017-04-07 19:30 | NUR ---
Received patient sitting up in bed. Daughter Sanma at bedside. Patient is stable. Alert and verbally responsive. Able to make needs known. Denies any pain and discomfort at this time. No acute distress. No SOB. No c/o sore throat. Right eye noted to be red. No active bleeding noted. AM nurse informed me that Elaquis is being held as ordered. All needs attended to promptly. Call light within reach. Will continue to monitor.
[2017-04-07 20:00] VITALS: BP 108/59
[2017-04-07] MEDS: TRAZODONE 50 MG TABLET PO SCH (21:45)
[2017-04-07] MEDS: ATORVASTATIN 10 MG TABLET PO SCH (21:46)
[2017-04-07] MEDS: PATIENT MAY USE OWN MED- MD OK PO SCH (21:49)
[2017-04-07] MEDS ORDERED: TRAZODONE 50 MG TABLET ONE (21:53)
[2017-04-08] MEDS: BLOOD SUGAR DIAGNOSTIC 1 EACH STRIP VI SCH ×4 (06:46→21:26)
--- NOTE | 2017-04-08 06:50 | NUR ---
Patient slept comfortably throughout the night. Daughter at bedside. Alert and verbally responsive. Able to make needs known. Denies any pain and discomfort. No acute distress. BS 158. Will endorse to AM shift. No s/s of hyperglycemia. Kept clean and dry. All needs attended to promptly. Call light within reach. Will continue to monitor.
[2017-04-08 08:00] VITALS: BP 118/62
[2017-04-08] MEDS: GLIMEPIRIDE 4 MG TABLET PO SCH ×2 (08:00→17:38)
[2017-04-08] MEDS: INSULIN REGULAR, HUMAN 300 UNIT/3 ML VIAL SQ PRN ×4 (08:17→21:41)
[2017-04-08] MEDS: LINAGLIPTIN 5 MG TABLET PO SCH (09:00)
[2017-04-08] MEDS: CARBIDOPA/LEVODOPA 25-100MG TABLET PO SCH ×3 (09:00→21:14)
[2017-04-08] MEDS: LIDOCAINE 5% PATCH TD SCH ×2 (09:00→14:56)
[2017-04-08] MEDS: VITAMIN B COMPLEX 1 TABLET PO SCH (09:00)
[2017-04-08] MEDS: ASPIRIN 81 MG TAB.CHEW PO SCH (09:00)
[2017-04-08] MEDS: OCUVITE WITH LUTEIN PO SCH (09:00)
[2017-04-08] MEDS: [UNRECOGNIZED DRUG - OTHER] PO SCH (09:00)
--- NOTE | 2017-04-08 09:57 | NUR ---
0730 Pt. sleeping comfortably. 2 l via n/c. Daughter at . Pt. has a low grade fever of 100.1 and pt. is sweaty. Daughter reports that pt. has hx of sweating at night especially, with his Parkinson.s. Comfort measures provided and encouraged to take sips of water. Pt. refuses breakfast and daughter requests that pt.be allowed to sleep some more. Continue to monitor.
[2017-04-08 10:44] VITALS: BP 133/67
--- NOTE | 2017-04-08 10:55 | NUR ---
[address] Dr[address] at bs[address] CT head order stat. 1050 Pt. left unit via bed for CT.
--- NOTE | 2017-04-08 11:05 | NUR ---
Pt. return form CT. Needs attended. Pt. slightly awake and answering simple questions and commands.
[2017-04-08] MEDS: CLOTRIMAZOLE 1% CREAM 30 GM TUBE TOP SCH ×2 (12:50→23:17)
--- NOTE | 2017-04-08 13:05 | NUR ---
REHAB INTERDISCIPLINARY SUMMARY
[2017-04-08 13:25] LABS: CARBON DIOXIDE 26 mmol/L (21-32); CHLORIDE 102 mmol/L (98-107); CREATININE 0.8 mg/dL (0.6-1.3); GLUCOSE 133 mg/dL (74-106); POTASSIUM 3.4 mmol/L (3.5-5.1); UREA NITROGEN, BLOOD 9 mg/dL (7-18)
[2017-04-08 13:26] LABS: BASOPHILS # (AUTO) 0.6 K/uL (0.0-8.0); BASOPHILS % (AUTO) 3.6 % (0.0-2.0); EOSINOPHILS # (AUTO) 0.1 K/uL (0.0-0.7); EOSINOPHILS % (AUTO) 0.6 % (0.0-7.0); HEMATOCRIT 36.9 % (40-50); HEMOGLOBIN 12.1 G/DL (14.0-18.0); LYMPHOCYTES # (AUTO) 1.7 K/UL (0.8-4.8); LYMPHOCYTES % (AUTO) 9.5 % (20.5-51.5); MEAN CORPUSCULAR HGB CONC 33 g/dL (32.0-37.0); MEAN CORPUSCULAR VOLUME 100.3 FL (82.0-92.0); MONOCYTES # (AUTO) 0.6 K/UL (0.1-1.30); MONOCYTES % (AUTO) 3.2 % (0.0-11.0); NEUTROPHILS % (AUTO) 83.1 % (38.5-71.5); PLATELET COUNT (AUTO) 200 K/UL (150-450); RED BLOOD CELL COUNT(AUTO) 3.68 MIL/UL (4.7-6.1)
[2017-04-08 13:51] VITALS: BP 121/59
[2017-04-08] MEDS: DIGOXIN 125 MCG TABLET PO SCH (13:56)
[2017-04-08] MEDS: METOPROLOL TARTRATE 25 MG TABLET PO SCH ×2 (13:57→21:09)
[2017-04-08] MEDS: RASAGILINE MESYLATE 1 MG PO SCH (13:58)
--- NOTE | 2017-04-08 14:00 | NUR ---
Pt. waking up and talking to family and staff and drinking more water and small amount food and able to take pills. Partial bed bath. Pt. voided. [address] Will Longoria re. labs and cxr results. Dr. Littlejohn at discussing care plan with pt. and daughter. Pt. has improved appetite. Bladder scanner show 119 ml. Pt. denies bladder pressure or pain. IV placed.
[2017-04-08 14:07] LABS: BAND % (MANUAL) 8 % (0-10); LYMPHOCYTES % (MANUAL) 16 % (20-40); METAMYELOCYTES % 1 % (0-1); MONOCYTES % (MANUAL) 5 % (2-10); MYELOCYTES % 1 % (0-0); NEUTROPHILS % (MANUAL) 69 % (42-75)
[2017-04-08] MEDS ORDERED: VANCOMYCIN IV 1 G in PREMIXED 0 EACH IV SCH (17:15)
--- NOTE | 2017-04-08 17:21 | NUR ---
CLINICAL PHARMACY NOTE: VANCOMYCIN PHARMACY TO DOSE subjective: to start vancomycin in this 87 yo gentlement for indication of PNA objective: weight 92 kg height 182 cm bun 13 Scr 0.8 wbc 18 temp 100.1 Assessment/Plan Will start vancomycin 1250mg q14 for estimated trough of 15.97. First dose due today at 1800. will order trough before 4th scheduled dose (not ordered yet). Will check renal function and dose per level if to become unstable. will continue to follow
--- NOTE | 2017-04-08 19:00 | NUR ---
RECEIVED PATIENT IN BED, AWAKE, NO COMPLAIN OF PAIN, NO SOB NOTED, OXYGEN IN PLACE SAT 94%, IV HEPLOCK IN PLACED, NO S/S OF DISTRESS. DAUGHTER AT BEDSIDES.
[2017-04-08] MEDS: IV NS 1000 ML 1,000 ML IV PRN (20:16)
[2017-04-08] MEDS: PIPERACILLIN SODIUM/TAZOBACTAM 4.5 G in IV DEXTROSE 5% 50 ML IV SCH ×2 (20:20→22:00)
[2017-04-08 20:54] VITALS: BP 117/62
[2017-04-08 21:06] VITALS: BP 117/62
[2017-04-08] MEDS: HYDROCODONE/APAP 5-325MG TABLET PO PRN (21:14)
[2017-04-08] MEDS: ATORVASTATIN 10 MG TABLET PO SCH (21:15)
[2017-04-08] MEDS: VANCOMYCIN IV 1,250 MG in IV DEXTROSE 5% 500 ML IV SCH (21:28)
--- NOTE | 2017-04-08 22:00 | NUR ---
ZOSYN IV DOSE 2200 NOT GIVEN, TOO CLOSE FROM PREVIOUS ADMINISTRATION. WILL NOTIFY PHARMACY.
[2017-04-08 22:53] LABS: *BLOOD, URINE 2+ (NEGATIVE); *CLARITY,URINE SLIGHTLY CLOUDY (CLEAR); *COLOR,URINE DARK YELLOW (YELLOW); *KETONES,URINE 1+ (NEGATIVE); *PROTEIN,URINE 1+ (NEGATIVE); LEUKOCYTE ESTERASE ,URINE NEGATIVE (NEGATIVE); NITRITE, URINE NEGATIVE (NEGATIVE); PH,URINE 5.5 (5.0-8.0); UGLUCOSE NEGATIVE (NEGATIVE)
[2017-04-08 23:16] LABS: *BILIRUBIN,URIN 2+ (NEGATIVE)
[2017-04-08] MEDS: PATIENT MAY USE OWN MED- MD OK PO SCH (23:17)
[2017-04-08 23:20] LABS: SQUAMOUS EPITHELIAL CELL,UR FEW /HPF (NONE SEEN); WBC,URINE 0-3 /HPF (0-3)
[2017-04-08 23:21] LABS: CALCIUM OXALATE CRYSTALS,UR RARE /HPF (NONE SEEN)
[2017-04-08 23:22] LABS: MUCUS,URINE FEW /LPF (0-FEW)
[2017-04-09] MEDS: BLOOD SUGAR DIAGNOSTIC 1 EACH STRIP VI SCH ×4 (06:23→21:18)
[2017-04-09] MEDS: PIPERACILLIN SODIUM/TAZOBACTAM 4.5 G in IV DEXTROSE 5% 50 ML IV SCH ×3 (06:23→23:23)
[2017-04-09 07:01] LABS: BASOPHILS % (AUTO) 0.2 % (0.0-2.0); EOSINOPHILS # (AUTO) 0.2 K/uL (0.0-0.7); EOSINOPHILS % (AUTO) 1.2 % (0.0-7.0); HEMATOCRIT 33.9 % (40-50); HEMOGLOBIN 11.9 G/DL (14.0-18.0); LYMPHOCYTES # (AUTO) 1.1 K/UL (0.8-4.8); LYMPHOCYTES % (AUTO) 7.4 % (20.5-51.5); MEAN CORPUSCULAR HEMOGLOBIN 35.5 UUG (27.0-31.0); MEAN CORPUSCULAR HGB CONC 35 g/dL (32.0-37.0); MEAN CORPUSCULAR VOLUME 100.8 FL (82.0-92.0); MONOCYTES # (AUTO) 0.6 K/UL (0.1-1.30); MONOCYTES % (AUTO) 3.6 % (0.0-11.0); NEUTROPHILS # (AUTO) 13.5 K/UL (1.8-8.9); NEUTROPHILS % (AUTO) 87.6 % (38.5-71.5); PLATELET COUNT (AUTO) 163 K/UL (150-450); RED BLOOD CELL COUNT(AUTO) 3.36 MIL/UL (4.7-6.1); WHITE BLOOD COUNT (AUTO) 15.4 K/UL (4.0-11.2)
[2017-04-09 07:06] LABS: CARBON DIOXIDE 30 mmol/L (21-32); CHLORIDE 105 mmol/L (98-107); CREATININE 0.9 mg/dL (0.6-1.3); GLUCOSE 143 mg/dL (74-106); MAGNESIUM 1.9 mg/dL (1.8-2.4); PHOSPHOROUS 2.9 mg/dL (2.5-4.9); POTASSIUM 3.2 mmol/L (3.5-5.1); UREA NITROGEN, BLOOD 10 mg/dL (7-18)
[2017-04-09 07:35] LABS: BAND % (MANUAL) 2 % (0-10); LYMPHOCYTES % (MANUAL) 5 % (20-40); MONOCYTES % (MANUAL) 2 % (2-10); NEUTROPHILS % (MANUAL) 91 % (42-75)
[2017-04-09] MEDS: ASPIRIN 325 MG TABLET PO SCH (08:41)
[2017-04-09] MEDS: VANCOMYCIN IV 1,250 MG in IV DEXTROSE 5% 500 ML IV SCH ×2 (08:41→21:04)
[2017-04-09] MEDS: CARBIDOPA/LEVODOPA 25-100MG TABLET PO SCH ×3 (08:42→21:04)
[2017-04-09] MEDS: METOPROLOL TARTRATE 25 MG TABLET PO SCH ×2 (08:42→21:01)
[2017-04-09] MEDS: VITAMIN B COMPLEX 1 TABLET PO SCH (08:43)
[2017-04-09] MEDS: LINAGLIPTIN 5 MG TABLET PO SCH (08:43)
[2017-04-09] MEDS: GLIMEPIRIDE 4 MG TABLET PO SCH ×2 (08:43→18:26)
[2017-04-09] MEDS: OCUVITE WITH LUTEIN PO SCH (08:44)
[2017-04-09] MEDS: [UNRECOGNIZED DRUG - OTHER] PO SCH (08:44)
[2017-04-09] MEDS: CLOTRIMAZOLE 1% CREAM 30 GM TUBE TOP SCH ×2 (08:44→21:05)
[2017-04-09] MEDS: LIDOCAINE 5% PATCH TD SCH (08:44)
[2017-04-09] MEDS: RASAGILINE MESYLATE 1 MG PO SCH (08:45)
[2017-04-09] MEDS: DIGOXIN 125 MCG TABLET PO SCH (08:50)
[2017-04-09] MEDS ORDERED: ASPIRIN 81 MG TAB.CHEW PO SCH (09:00)
[2017-04-09 10:22] VITALS: BP 108/60
[2017-04-09] MEDS: INSULIN REGULAR, HUMAN 300 UNIT/3 ML VIAL SQ PRN ×2 (12:42→16:52)
[2017-04-09] MEDS ORDERED: POTASSIUM CHLORIDE 20 MEQ TAB.PRT.SR PO ONE (13:45)
[2017-04-09] MEDS: HYDROCODONE/APAP 5-325MG TABLET PO PRN (15:00)
--- NOTE | 2017-04-09 15:16 | NUR ---
CLINICAL PHARMACY NOTE: VANCOMYCIN PHARMACY TO DOSE subjective: to continue vancomycin in this 87 yo gentlement for indication of PNA objective: weight 92 kg height 182 cm bun 10 Scr 0.9 wbc 15.4 temp 98.4 Assessment/Plan Will continue vancomycin 1250mg q14 for estimated trough of 15.97. Will order trough before 4th scheduled dose (ordered for tomorrow at 1130). Will check renal function and dose per level if to become unstable. will continue to follow
[2017-04-09 19:58] VITALS: BP 126/64
[2017-04-09] MEDS: ATORVASTATIN 10 MG TABLET PO SCH (20:53)
[2017-04-09] MEDS ORDERED: MIRTAZAPINE 15 MG TABLET PO SCH (21:00)
[2017-04-09] MEDS: PATIENT MAY USE OWN MED- MD OK PO SCH (21:06)
[2017-04-09] MEDS: METHYL SALICYLATE/MENTHOL CREAM 28 GM TUBE TOP PRN (21:22)
[2017-04-09] MEDS: IV NS 1000 ML 1,000 ML IV PRN (23:23)
[2017-04-10] MEDS: PIPERACILLIN SODIUM/TAZOBACTAM 4.5 G in IV DEXTROSE 5% 50 ML IV SCH ×3 (05:55→22:01)
[2017-04-10] MEDS: BLOOD SUGAR DIAGNOSTIC 1 EACH STRIP VI SCH ×4 (06:52→20:30)
--- NOTE | 2017-04-10 06:59 | NUR ---
pt s/p midline placement last night, good blood return, restarted iv fluids and continue antibiotics, no bm overnight,sleeping well , incontinent of bladder.,turning q2 hrs,vss,afebrile.all needs attended.no significant changes, bengay to right foot pain.
--- NOTE | 2017-04-10 07:45 | NUR ---
Received pt in bed, sleeping easily arousable. NO distress noted. Midline to PANCHO with IV fluids of NS at 75 mll/hr, no s/s of infection at site. Call light within reach. Bed low/locked position. Personal belongings within easy reach. Daughter is at bedside.
[2017-04-10] MEDS: [UNRECOGNIZED DRUG - OTHER] PO SCH (09:00)
[2017-04-10] MEDS: VITAMIN B COMPLEX 1 TABLET PO SCH (09:00)
[2017-04-10] MEDS: OCUVITE WITH LUTEIN PO SCH (09:00)
[2017-04-10] MEDS: ASPIRIN 325 MG TABLET PO SCH (09:34)
[2017-04-10] MEDS: DIGOXIN 125 MCG TABLET PO SCH (09:34)
[2017-04-10] MEDS: GLIMEPIRIDE 4 MG TABLET PO SCH ×3 (09:34→20:35)
[2017-04-10] MEDS: METOPROLOL TARTRATE 25 MG TABLET PO SCH ×2 (09:36→20:34)
[2017-04-10] MEDS: LINAGLIPTIN 5 MG TABLET PO SCH (09:37)
[2017-04-10] MEDS: RASAGILINE MESYLATE 1 MG PO SCH (09:37)
[2017-04-10] MEDS: LIDOCAINE 5% PATCH TD SCH (09:38)
[2017-04-10] MEDS: CLOTRIMAZOLE 1% CREAM 30 GM TUBE TOP SCH ×2 (09:38→22:01)
--- NOTE | 2017-04-10 10:05 | NUR ---
Pt was seen by Dr. Hoover discussed plan of care with daughter and patient. Noted redness to right toe, pt c/o pain. Dr. Hoover assessed toe, received orders for xray to right foot.
[2017-04-10] MEDS: CARBIDOPA/LEVODOPA 25-100MG TABLET PO SCH ×3 (10:25→20:36)
--- NOTE | 2017-04-10 12:30 | NUR ---
Xray to right foot done.
[2017-04-10] MEDS: VANCOMYCIN IV 1,250 MG in IV DEXTROSE 5% 500 ML IV SCH (12:56)
[2017-04-10] MEDS: INSULIN REGULAR, HUMAN 300 UNIT/3 ML VIAL SQ PRN ×2 (12:58→17:29)
--- NOTE | 2017-04-10 15:44 | NUR ---
CLINICAL PHARMACY NOTE: VANCOMYCIN PHARMACY TO DOSE subjective: to continue vancomycin in this 87 yo gentlement for indication of PNA objective: weight 92 kg height 182 cm bun 10(04/09) Scr 0.9(04/09) wbc 15.4(04/09) temp :no temp recording today yet Vancomycin trough 14.2 at 1130 today Assessment/Plan Will increase vancomycin to 1500mg q15h for estimated trough of 15.3. First dose tomorrow at 0100. Will order trough before 4th scheduled dose (not ordered yet). Will check renal function and dose per level if to become unstable. will continue to follow
[2017-04-10] MEDS: NAPROXEN 500 MG TABLET PO SCH ×2 (17:31→20:35)
[2017-04-10] MEDS ORDERED: GUAIFENESIN/CODEINE 5 ML LIQUID UDC PO PRN (18:30)
--- NOTE | 2017-04-10 18:30 | NUR ---
Pt in bed, sleeping, no distress noted. Pt was more drowsy throughout the day. Daughter spoke to Dr. Roland, daughter is concern on increase sleeping during the day and want to decrease trazodone dose. Dr. Roland spoke to daughters regarding her concern. Mid line to PANCHO, intact and patent. No s/s of infection, no infiltration noted. Call light/personal belongings within reach.
--- NOTE | 2017-04-10 18:51 | NUR ---
Pt sleeping, Naproxen and Amaryl not given at this time. Will endorse to oncoming nurse to administer with Dinner when pt wakes up.
--- NOTE | 2017-04-10 19:30 | NUR ---
Patient lying in bed awake, no s/s of acute distress. No complaints of pain at this time. Daughter at bedside. Encouraged to call for any help. Call light within reach. Will continue to monitor.
[2017-04-10 20:00] VITALS: BP 117/72
[2017-04-10] MEDS: MIRTAZAPINE 15 MG TABLET PO SCH ×2 (20:34→21:04)
[2017-04-10] MEDS: ATORVASTATIN 10 MG TABLET PO SCH (20:36)
[2017-04-10] MEDS: PATIENT MAY USE OWN MED- MD OK PO SCH (21:05)
--- NOTE | 2017-04-10 21:30 | NUR ---
Refused Accucheck despite teaching , saying she has already been pricked a lot of times today Addendum: 04/11/17 at 0028 by TYRONE WALTERS RN Wrong patient
[2017-04-11] MEDS: VANCOMYCIN IV 1,500 MG in IV DEXTROSE 5% 500 ML IV SCH ×2 (01:37→16:04)
[2017-04-11] MEDS: IV NS 1000 ML 1,000 ML IV PRN ×2 (01:54→20:00)
[2017-04-11] MEDS: PIPERACILLIN SODIUM/TAZOBACTAM 4.5 G in IV DEXTROSE 5% 50 ML IV SCH ×3 (06:14→22:00)
[2017-04-11 07:12] LABS: CARBON DIOXIDE 27 mmol/L (21-32); CHLORIDE 105 mmol/L (98-107); CREATININE 0.9 mg/dL (0.6-1.3); GLUCOSE 117 mg/dL (74-106); MAGNESIUM 1.9 mg/dL (1.8-2.4); PHOSPHOROUS 3.1 mg/dL (2.5-4.9); POTASSIUM 3.2 mmol/L (3.5-5.1); UREA NITROGEN, BLOOD 9 mg/dL (7-18)
[2017-04-11 07:14] LABS: BASOPHILS % (AUTO) 0.2 % (0.0-2.0); EOSINOPHILS # (AUTO) 0.2 K/uL (0.0-0.7); EOSINOPHILS % (AUTO) 2.4 % (0.0-7.0); HEMATOCRIT 36.4 % (40-50); HEMOGLOBIN 12.1 G/DL (14.0-18.0); LYMPHOCYTES # (AUTO) 1.5 K/UL (0.8-4.8); LYMPHOCYTES % (AUTO) 16.4 % (20.5-51.5); MEAN CORPUSCULAR HEMOGLOBIN 33.3 UUG (27.0-31.0); MEAN CORPUSCULAR HGB CONC 33 g/dL (32.0-37.0); MEAN CORPUSCULAR VOLUME 100.6 FL (82.0-92.0); MONOCYTES # (AUTO) 0.2 K/UL (0.1-1.30); NEUTROPHILS # (AUTO) 7.5 K/UL (1.8-8.9); PLATELET COUNT (AUTO) 195 K/UL (150-450); RED BLOOD CELL COUNT(AUTO) 3.62 MIL/UL (4.7-6.1)
[2017-04-11 07:18] LABS: WHITE BLOOD COUNT (AUTO) 9.4 K/UL (4.0-11.2)
[2017-04-11] MEDS: BLOOD SUGAR DIAGNOSTIC 1 EACH STRIP VI SCH ×4 (07:30→20:09)
--- NOTE | 2017-04-11 07:47 | NUR ---
Patient sleeping with no s/s of acute distress. Respirations even and unlabored. No complaints of pain during the shift. Frequent checks done. Due meds given. Needs attended. Daughter refused diaper change and blood sugar check this morning because she wanted her father to sleep in and not to be disturbed. Call light kept within reach. Slept well during the night. Endorsed accordingly.
--- NOTE | 2017-04-11 07:53 | NUR ---
IV intact and patent, no s/s of infiltration. IVF infusing well.
[2017-04-11] MEDS: GLIMEPIRIDE 4 MG TABLET PO SCH ×2 (08:00→18:00)
[2017-04-11] MEDS: NAPROXEN 500 MG TABLET PO SCH ×2 (08:00→18:00)
[2017-04-11 08:26] LABS: BAND % (MANUAL) 3 % (0-10); EOSINOPHILS % (MANUAL) 2 % (0-8); LYMPHOCYTES % (MANUAL) 16 % (20-40); MONOCYTES % (MANUAL) 7 % (2-10); NEUTROPHILS % (MANUAL) 72 % (42-75)
--- NOTE | 2017-04-11 08:28 | NUR ---
DAILY NOTE IN BED ASLEEP RESTING QUIETLY DAUGHTER STATES HE HAS BEEN UPSET, ANGRY DEPRESSED THE LAST NIGHT AND REQUEST THAT WE DO NOT AWAKE HIM FOR TX/MEDS AT THIS TIME. PT CLEANED DIAPER CHANGE DONE. PERICARE GIVEN. PT BACK TO SLEEP.
[2017-04-11] MEDS: LIDOCAINE 5% PATCH TD SCH (09:00)
[2017-04-11] MEDS: ASPIRIN 325 MG TABLET PO SCH (09:00)
[2017-04-11] MEDS: CARBIDOPA/LEVODOPA 25-100MG TABLET PO SCH ×3 (09:00→20:11)
[2017-04-11] MEDS: METOPROLOL TARTRATE 25 MG TABLET PO SCH ×2 (09:00→20:10)
[2017-04-11] MEDS: LINAGLIPTIN 5 MG TABLET PO SCH (09:00)
[2017-04-11] MEDS: RASAGILINE MESYLATE 1 MG PO SCH (09:00)
[2017-04-11] MEDS: OCUVITE WITH LUTEIN PO SCH (09:00)
[2017-04-11] MEDS: [UNRECOGNIZED DRUG - OTHER] PO SCH (09:00)
[2017-04-11] MEDS: VITAMIN B COMPLEX 1 TABLET PO SCH (09:00)
[2017-04-11] MEDS: DIGOXIN 125 MCG TABLET PO SCH (09:00)
[2017-04-11] MEDS: CLOTRIMAZOLE 1% CREAM 30 GM TUBE TOP SCH ×2 (10:00→22:00)
[2017-04-11] MEDS ORDERED: POTASSIUM CHLORIDE 20 MEQ TAB.PRT.SR PO ONE (11:45)
--- NOTE | 2017-04-11 12:30 | NUR ---
Patient has new order for potassium, offered to patient but refused. Daughter at bedside and aware. Explained risks and benefits but patient still refused.
--- NOTE | 2017-04-11 16:28 | NUR ---
MEDICATIONS DAUGHTER AND PT DECIDED TO TAKE THE DOSE FOR DIGOXIN, TENORMIN, VANCOMYCIN IV AND CARBIDOPA. LIDOCAINE PATCH APPLIED
--- NOTE | 2017-04-11 16:56 | NUR ---
DAILY NOTE O2 VIA N/C . PT REMOVES N/C SAYS IT MAKES HIS NOSE DRY INFORMED DAUGHTER TO MAKE SURE IT DOES NOT STAY OFF TOO LONG. SATING 93% ON RA AT THIS TIME
--- NOTE | 2017-04-11 19:45 | NUR ---
RECEIVED PATIENT ASLEEP IN BED WITH DAUGHTER AT BEDSIDE. NO S/S OF PAIN OR DISCOMFORT. NO RESP. DISTRESS NOTED. VSS. AFEBRILE. ON RA SATING 94%. CALL LIGHT IN REACH. BED ALARM ON. ALL NEEDS ATTENDED. WILL CONTINUE TO MONITOR.
[2017-04-11] MEDS ORDERED: POTASSIUM CHLORIDE 20 MEQ TAB.PRT.SR ONE (19:53)
[2017-04-11] MEDS: LACTOBACILLUS RHAMNOSUS GG 1 EACH CAPSULE PO SCH (20:10)
[2017-04-11] MEDS: ATORVASTATIN 10 MG TABLET PO SCH (20:10)
--- NOTE | 2017-04-11 20:10 | NUR ---
PATIENT AWAKE IN BED. DENIES PAIN OR DISCOMFORT. PATIENT EDUCATED ON THE IMPORTANCE OF TAKING K-DUR. PATIENT COMPLIANT AND COOPERATIVE WITH TAKING K-DUR 40 MEQ KCL. IVF INFUSING WELL TO LEFT UPPER ARM. BED ALARM ON. CALL LIGHT IN REACH. ALL NEEDS ATTENDED. DAUGHTER PRESENT AT BEDSIDE.
[2017-04-11] MEDS: PATIENT MAY USE OWN MED- MD OK PO SCH (20:11)
[2017-04-11] MEDS: MIRTAZAPINE 15 MG TABLET PO SCH (20:11)
[2017-04-11] MEDS: INSULIN REGULAR, HUMAN 300 UNIT/3 ML VIAL SQ PRN (20:20)
[2017-04-11 20:21] VITALS: BP 131/78
[2017-04-12] MEDS: PIPERACILLIN SODIUM/TAZOBACTAM 4.5 G in IV DEXTROSE 5% 50 ML IV SCH ×3 (05:48→21:33)
--- NOTE | 2017-04-12 06:12 | NUR ---
PATIENT AWAKE IN BED. CHANGED AND REPOSITIONED TO SIDE/COMFORT. PATIENT SLEPT WELL THROUGHOUT THE NIGHT. DENIES PAIN OR DISCOMFORT. IVF INFUSING WELL TO MID-LINE NOTED TO LEFT UPPER ARM. BED ALARM ON. CALL LIGHT IN REACH. ALL NEEDS ATTENDED, WILL CONTINUE TO MONITOR AND ASSESS.
[2017-04-12] MEDS: BLOOD SUGAR DIAGNOSTIC 1 EACH STRIP VI SCH ×4 (06:31→21:59)
[2017-04-12] MEDS: VANCOMYCIN IV 1,500 MG in IV DEXTROSE 5% 500 ML IV SCH ×2 (07:02→21:29)
[2017-04-12 07:30] VITALS: BP 158/89
[2017-04-12 07:44] LABS: EOSINOPHILS # (AUTO) 0.3 K/uL (0.0-0.7); EOSINOPHILS % (AUTO) 2.3 % (0.0-7.0); HEMATOCRIT 38.2 % (40-50); HEMOGLOBIN 12.6 G/DL (14.0-18.0); LYMPHOCYTES # (AUTO) 1.6 K/UL (0.8-4.8); LYMPHOCYTES % (AUTO) 11.8 % (20.5-51.5); MEAN CORPUSCULAR HEMOGLOBIN 33.3 UUG (27.0-31.0); MEAN CORPUSCULAR HGB CONC 33 g/dL (32.0-37.0); MEAN CORPUSCULAR VOLUME 100.6 FL (82.0-92.0); MONOCYTES # (AUTO) 0.5 K/UL (0.1-1.30); MONOCYTES % (AUTO) 3.4 % (0.0-11.0); NEUTROPHILS # (AUTO) 11.6 K/UL (1.8-8.9); NEUTROPHILS % (AUTO) 82.5 % (38.5-71.5); PLATELET COUNT (AUTO) 222 K/UL (150-450)
[2017-04-12 07:50] LABS: CARBON DIOXIDE 26 mmol/L (21-32); CHLORIDE 110 mmol/L (98-107); CREATININE 0.8 mg/dL (0.6-1.3); GLUCOSE 106 mg/dL (74-106); UREA NITROGEN, BLOOD 6 mg/dL (7-18)
[2017-04-12] MEDS: RASAGILINE MESYLATE 1 MG PO SCH (09:00)
[2017-04-12] MEDS: LINAGLIPTIN 5 MG TABLET PO SCH (09:00)
[2017-04-12] MEDS: ASPIRIN 325 MG TABLET PO SCH (09:00)
[2017-04-12] MEDS: VITAMIN B COMPLEX 1 TABLET PO SCH (09:00)
[2017-04-12] MEDS ORDERED: POTASSIUM CHLORIDE 20 MEQ TAB.PRT.SR PO ONE (09:00)
[2017-04-12] MEDS: OCUVITE WITH LUTEIN PO SCH (09:00)
[2017-04-12] MEDS: [UNRECOGNIZED DRUG - OTHER] PO SCH (09:00)
[2017-04-12] MEDS: GLIMEPIRIDE 4 MG TABLET PO SCH ×2 (09:43→18:00)
[2017-04-12] MEDS: LACTOBACILLUS RHAMNOSUS GG 1 EACH CAPSULE PO SCH ×2 (09:44→21:00)
[2017-04-12] MEDS: DIGOXIN 125 MCG TABLET PO SCH (09:47)
[2017-04-12] MEDS: NAPROXEN 500 MG TABLET PO SCH ×2 (09:48→18:00)
[2017-04-12] MEDS: CARBIDOPA/LEVODOPA 25-100MG TABLET PO SCH ×3 (09:48→21:35)
[2017-04-12] MEDS: METOPROLOL TARTRATE 25 MG TABLET PO SCH ×2 (09:50→21:36)
[2017-04-12] MEDS: LIDOCAINE 5% PATCH TD SCH (09:51)
[2017-04-12] MEDS: POTASSIUM CHLORIDE 20 MEQ TAB.PRT.SR PO SCH ×2 (09:55→21:41)
[2017-04-12] MEDS: CLOTRIMAZOLE 1% CREAM 30 GM TUBE TOP SCH ×2 (10:01→22:00)
[2017-04-12 10:55] LABS: BAND % (MANUAL) 5 % (0-10); BASOPHILS % (MANUAL) 1 % (0-2); EOSINOPHILS % (MANUAL) 4 % (0-8); LYMPHOCYTES % (MANUAL) 4 % (20-40); MONOCYTES % (MANUAL) 7 % (2-10); NEUTROPHILS % (MANUAL) 79 % (42-75)
--- NOTE | 2017-04-12 12:23 | NUR ---
CLINICAL PHARMACY NOTE: VANCOMYCIN PHARMACY TO DOSE subjective: to continue vancomycin in this 87 yo gentlement for indication of PNA objective: weight 92 kg height 182 cm bun 10(04/09) Scr 0.9(04/09) wbc 15.4(04/09) temp 98.2 Assessment/Plan Will increase vancomycin to 1500mg q15h for estimated trough of 15.3. Trough ordered before 4th scheduled dose (due tonight at 2130). RN endorsed to hold dose if trough >20. Will check trough in am and adjust as needed. Will check renal function and dose per level if to become unstable. will continue to follow
--- NOTE | 2017-04-12 13:31 | NUR ---
Dr. Kinga Longoria came to see patient and ordered stool for C-diff. Order carried out. Patient and daughter at bedside made aware.
[2017-04-12 19:55] VITALS: BP 137/75
[2017-04-12] MEDS: PATIENT MAY USE OWN MED- MD OK PO SCH (21:00)
[2017-04-12] MEDS: IV NS 1000 ML 1,000 ML IV PRN (21:33)
[2017-04-12] MEDS: METHYL SALICYLATE/MENTHOL CREAM 28 GM TUBE TOP PRN (21:33)
[2017-04-12] MEDS: ATORVASTATIN 10 MG TABLET PO SCH (21:34)
[2017-04-12] MEDS: MIRTAZAPINE 15 MG TABLET PO SCH (21:37)
[2017-04-12] MEDS ORDERED: POTASSIUM CHLORIDE 10 MEQ CAPSULE.SA ONE (21:47)
[2017-04-12 22:00] VITALS: BP 137/75
--- NOTE | 2017-04-12 22:08 | NUR ---
RN NOTES: PATIENT'S DAUGHTER REFUSES BLOOD DRAW. THE PRESCRIBED DOSE OF VANCOMYCIN IS HELD UPON THE DAUGHTER REQUEST.
[2017-04-13] MEDS: PIPERACILLIN SODIUM/TAZOBACTAM 4.5 G in IV DEXTROSE 5% 50 ML IV SCH ×2 (06:55→15:21)
--- NOTE | 2017-04-13 06:57 | NUR ---
RN NOTES: PATIENT'S DAUGHTER REQUESTED NOT TO CHECK THE BLOOD SUGAR AND TO ENDORSE IT TO AM SHIFT NURSE TO CHECK IT AND FOLLOW UP. WILL ENDORSE IT TO AM SHIFT NURSE UPON THE DAUGHTER'S REQUEST.
[2017-04-13] MEDS: BLOOD SUGAR DIAGNOSTIC 1 EACH STRIP VI SCH ×4 (07:30→21:17)
[2017-04-13] MEDS: NAPROXEN 500 MG TABLET PO SCH ×2 (08:00→17:36)
[2017-04-13] MEDS: METOPROLOL TARTRATE 25 MG TABLET PO SCH ×2 (09:00→21:09)
[2017-04-13] MEDS: [UNRECOGNIZED DRUG - OTHER] PO SCH (09:00)
[2017-04-13] MEDS: LACTOBACILLUS RHAMNOSUS GG 1 EACH CAPSULE PO SCH ×2 (09:00→21:00)
[2017-04-13] MEDS: OCUVITE WITH LUTEIN PO SCH (09:00)
[2017-04-13] MEDS: VITAMIN B COMPLEX 1 TABLET PO SCH (09:00)
--- NOTE | 2017-04-13 09:00 | NUR ---
NSG VITALS SIGNS TAKEN, BS CHECKED, BS 139 GAVE 2 UNITS OF REGULAR INSULIN PER PROTOCOL. PT DID NOT EAT BREAKFAST. DAUGHTER WH0 IS PRIMARY CAREGIVER WANTED TO TALK TO THE DOCTOR ABOUT HOLDING CERTAIN MEDS, GIVING SOME MEDS AT NOON AND ALL VITAMINS. PT IS SLEEPING NO RESP DISTRESS, NO C/O PAIN. WILL CONTINUE TO MONITOR.
[2017-04-13] MEDS: GLIMEPIRIDE 4 MG TABLET PO SCH ×2 (09:31→14:04)
[2017-04-13] MEDS: CARBIDOPA/LEVODOPA 25-100MG TABLET PO SCH ×3 (09:31→17:46)
[2017-04-13] MEDS: INSULIN REGULAR, HUMAN 300 UNIT/3 ML VIAL SQ PRN ×3 (09:41→21:18)
[2017-04-13] MEDS: CLOTRIMAZOLE 1% CREAM 30 GM TUBE TOP SCH ×2 (10:00→22:00)
--- NOTE | 2017-04-13 10:54 | NUR ---
CLINICAL PHARMACY NOTE: VANCOMYCIN PHARMACY TO DOSE subjective: to continue vancomycin in this 87 yo gentleman for indication of PNA objective: weight 92 kg height 182 cm bun 6 Scr 0.8 wbc 14 temp 97.9 Vanco trough level: family refused (to be drawn on 04/12 at 2130) Assessment/Plan Since family refused blood draw on 04/12 at 2130, RN ddi not give 2200 dose either. Spoke to family on 04/13 who agrees for blood draw to be rescheduled after next 3 doses (at steady state since dose was missed-however, prefers am draw if possible). Will continue vancomycin to 1500mg IVPB q15h for today. 1st dose due at 1100. Plan to draw vanco trough level before 4th dose (not yet ordered). Will check renal function and dose per level if to become unstable. will continue to follow
[2017-04-13] MEDS ORDERED: VANCOMYCIN IV 1,500 MG in IV DEXTROSE 5% 500 ML IV SCH (11:00)
--- NOTE | 2017-04-13 12:00 | NUR ---
NSG DOCTOR CAME CHANGED MED ORDERS PER DAUGHTERS REQUEST. PT RESTING IN BED, NO DISTRESS, NO C/O PAIN, DAUGHTER AT BEDSIDE ALL TIMES.
[2017-04-13] MEDS ORDERED: POTASSIUM CHLORIDE 20 MEQ POWDER PACKET PO ONE (12:45)
--- NOTE | 2017-04-13 13:30 | NUR ---
NSG PT RECEIVING PT GAVE AFTERNOON MEDS, PT SITTING IN W/C IN REHAB, NO DISTRESS, NO C/O PAIN.
[2017-04-13] MEDS: LIDOCAINE 5% PATCH TD SCH (14:10)
[2017-04-13] MEDS ORDERED: CARBIDOPA/LEVODOPA 25-100MG TABLET PO SCH (18:00)
[2017-04-13] MEDS: ATORVASTATIN 10 MG TABLET PO SCH (18:07)
--- NOTE | 2017-04-13 18:07 | NUR ---
NSG BLOOD SUGAR 150 GAVE 2 UNITS OF INSULIN SQ, PT TOOK PM MEDS WITH APPLE SAUCE. PT RESTING IN BED, SON AT BEDSIDE, NO DISTRESS, NO C/O PAIN.
--- NOTE | 2017-04-13 19:30 | NUR ---
PT ALERT AND ORIENTED. NO DISTRESS NOTED. MIDLINE INTACT. DAUGHTER AT BEDSIDE. BILATERAL LOWER EXTREMITIES OFFLOADING ON PILLOWS. NO PAIN NOTED AT THIS TIME. SAFETY MAINTAINED. CALL LIGHT WITHIN REACH. SAFETY MAINTAINED.
[2017-04-13] MEDS ORDERED: MIRTAZAPINE 15 MG TABLET PO SCH (20:00)
[2017-04-13] MEDS: MIRTAZAPINE 15 MG TABLET PO SCH (20:13)
[2017-04-13] MEDS: APIXABAN 5 MG TABLET PO SCH (20:14)
--- NOTE | 2017-04-13 20:30 | NUR ---
SPOKE WITH CONCERNING ANTIBIOTICS, DISCONTINUED THE ZOSYN AND VANCOMYCIN ORDERED. REMERON DUPLICATE ORDER, GAVE ONE 15MG TAB OF REMERON ORDERED. SAFETY MAINTAINED. CALL LIGHT WITHIN REACH. DAUGHTER AT BEDSIDE. WILL CONTINUE TO MONITOR.
[2017-04-13] MEDS: PATIENT MAY USE OWN MED- MD OK PO SCH (21:00)
[2017-04-13] MEDS: METHYL SALICYLATE/MENTHOL CREAM 28 GM TUBE TOP PRN (21:22)
--- NOTE | 2017-04-13 21:30 | NUR ---
TURNED AND REPOSITIONED PT, CLEAN AND DRY. LEFT SIDE OFFLOADED. BENGAY APPLIED TO RIGHT TOE ORDERED PER PT REQUEST. WILL CONTINUE TO MONITOR.
[2017-04-13] MEDS ORDERED: FLUCONAZOLE 200 MG/NS 100ML IV 100 MG in PREMIXED 1 EACH IV SCH (22:00)
[2017-04-14] MEDS: BLOOD SUGAR DIAGNOSTIC 1 EACH STRIP VI SCH ×3 (06:35→16:30)
[2017-04-14 07:10] VITALS: BP 151/74
--- NOTE | 2017-04-14 07:12 | NUR ---
PT RESTING IN BED. NO DISTRESS NOTED. BS 105. NO COVERAGE NEEDED. MIDLINE INTACT AND PATENT. CLEAN AND DRY. TURNED AND REPOSITIONED THROUGHOUT THE NIGHT. SKIN CARE PROVIDED. SAFETY MAINTAINED. CALL LIGHT WITHIN REACH. DAUGHTER AT BEDSIDE.
[2017-04-14 07:29] LABS: BASOPHILS % (AUTO) 0.1 % (0.0-2.0); EOSINOPHILS # (AUTO) 0.3 K/uL (0.0-0.7); EOSINOPHILS % (AUTO) 2.7 % (0.0-7.0); HEMATOCRIT 35.5 % (40-50); HEMOGLOBIN 11.8 G/DL (14.0-18.0); LYMPHOCYTES # (AUTO) 1.3 K/UL (0.8-4.8); LYMPHOCYTES % (AUTO) 11.3 % (20.5-51.5); MEAN CORPUSCULAR HEMOGLOBIN 33.6 UUG (27.0-31.0); MEAN CORPUSCULAR HGB CONC 33 g/dL (32.0-37.0); MEAN CORPUSCULAR VOLUME 100.8 FL (82.0-92.0); MONOCYTES # (AUTO) 0.3 K/UL (0.1-1.30); MONOCYTES % (AUTO) 2.9 % (0.0-11.0); NEUTROPHILS # (AUTO) 9.6 K/UL (1.8-8.9); PLATELET COUNT (AUTO) 196 K/UL (150-450); RED BLOOD CELL COUNT(AUTO) 3.52 MIL/UL (4.7-6.1); WHITE BLOOD COUNT (AUTO) 11.5 K/UL (4.0-11.2)
[2017-04-14 07:57] LABS: CARBON DIOXIDE 26 mmol/L (21-32); CHLORIDE 107 mmol/L (98-107); CREATININE 2.4 mg/dL (0.6-1.3); GLUCOSE 110 mg/dL (74-106); MAGNESIUM 1.8 mg/dL (1.8-2.4); PHOSPHOROUS 3.8 mg/dL (2.5-4.9); POTASSIUM 3.1 mmol/L (3.5-5.1); UREA NITROGEN, BLOOD 21 mg/dL (7-18)
[2017-04-14] MEDS: NAPROXEN 500 MG TABLET PO SCH ×2 (08:00→18:00)
[2017-04-14] MEDS: GLIMEPIRIDE 4 MG TABLET PO SCH ×2 (08:56→12:24)
[2017-04-14] MEDS: CARBIDOPA/LEVODOPA 25-100MG TABLET PO SCH ×3 (08:56→18:07)
[2017-04-14] MEDS: APIXABAN 5 MG TABLET PO SCH ×2 (08:56→18:06)
[2017-04-14] MEDS: PATIENT MAY USE OWN MED- MD OK PO SCH ×2 (08:57→20:15)
[2017-04-14] MEDS: LACTOBACILLUS RHAMNOSUS GG 1 EACH CAPSULE PO SCH ×2 (09:00→20:14)
[2017-04-14] MEDS: [UNRECOGNIZED DRUG - OTHER] PO SCH (09:00)
[2017-04-14] MEDS: VITAMIN B COMPLEX 1 TABLET PO SCH (09:00)
[2017-04-14] MEDS: LIDOCAINE 5% PATCH TD SCH (09:00)
[2017-04-14] MEDS: OCUVITE WITH LUTEIN PO SCH (09:00)
[2017-04-14] MEDS: CLOTRIMAZOLE 1% CREAM 30 GM TUBE TOP SCH (10:00)
[2017-04-14] MEDS ORDERED: COLCHICINE 0.6 MG TABLET PO ONE ×2 (11:00→12:00)
[2017-04-14] MEDS ORDERED: DIGOXIN 125 MCG TABLET PO SCH (12:00)
[2017-04-14] MEDS: INSULIN REGULAR, HUMAN 300 UNIT/3 ML VIAL SQ PRN (12:36)
[2017-04-14] MEDS: DIGOXIN 125 MCG TABLET PO SCH (12:38)
[2017-04-14] MEDS ORDERED: POTASSIUM CHLORIDE 10 MEQ CAPSULE.SA PO ONE (12:45)
[2017-04-14] MEDS ORDERED: POTASSIUM CHLORIDE 20 MEQ POWDER PACKET PO ONE (13:00)
[2017-04-14] MEDS: HYDROCODONE/APAP 5-325MG TABLET PO PRN (14:33)
[2017-04-14] MEDS ORDERED: METOPROLOL TARTRATE 25 MG TABLET PO SCH (18:00)
[2017-04-14] MEDS ORDERED: METOPROLOL SUCCINATE XL 25 MG TAB.SR.24H PO SCH (18:00)
[2017-04-14] MEDS: ATORVASTATIN 10 MG TABLET PO SCH (18:06)
[2017-04-14] MEDS: LINAGLIPTIN 5 MG TABLET PO SCH (18:07)
--- NOTE | 2017-04-14 18:47 | NUR ---
Call out to Doctor Malu to clarify hold parameter for bp med metoprolol (lopressor).
--- NOTE | 2017-04-14 19:00 | NUR ---
RECEIVED PATIENT IN BED ALERT ORIENTED, NO SOB NO CHEST PAIN NOTED, KEPT CLEAN AND DRY, NO S/S OF HYPO/HYPERGLYCEMIA NOTED, FAMILY AT TH BEDSIDES. CONT TO MONITOR.
[2017-04-14 20:00] VITALS: BP 111/71
[2017-04-14] MEDS: MIRTAZAPINE 15 MG TABLET PO SCH (20:10)
--- NOTE | 2017-04-14 20:30 | NUR ---
ACCUCHECK WAS REFUSED BY PATIENT, DAUGHTER REQUESTED TO TAKE IT LATER AND WHEN PATIENT WAKES UP FROM SLEEP OR NAPS. DAUGHTER AND PATIENT REFUSED TO BE CHECK FOR SOILED DIAPER, AND REFUSED TO BE MOVED OR REPOSITION, DAUGHTER STATED "HE'S FINE ON ONE POSITION FOR LONG PERIOD OF TIME" SHE SAID "HE COMFORTABLE DO NOT MOVED HIM" EXPLAINED THE RISK AND BENEFIT OF TURNING AND REPOSITION AT LEAST TWO HOURS. RESPECT FAMILY WISHES.
--- NOTE | 2017-04-14 20:35 | NUR ---
DAUGHTER REFUSING 2100 MEDICATIONS EXCEPT FOR REMERON, STATED "I GAVE THE LIST OF MEDICATIONS THAT HER FATHER WILL TAKE ONLY" TO THE MORNING NURSE. RESPECT FAMILY WISHES.
[2017-04-15] MEDS: BLOOD SUGAR DIAGNOSTIC 1 EACH STRIP VI SCH ×5 (00:41→20:33)
[2017-04-15] MEDS: CLOTRIMAZOLE 1% CREAM 30 GM TUBE TOP SCH ×2 (00:42→10:00)
--- NOTE | 2017-04-15 06:40 | NUR ---
PATIENT SLEPT MOST OF THE NIGHT, NO SOB NO CHEST PAIN NOTED, MIDLINE L UPPER ARM INTACT, TURN AND REPOSITION, KEPT CLEAN AND DRY, CONT TO MONITOR.
[2017-04-15 07:30] VITALS: BP 160/94
[2017-04-15 07:36] LABS: CARBON DIOXIDE 24 mmol/L (21-32); CHLORIDE 105 mmol/L (98-107); CREATININE 2.5 mg/dL (0.6-1.3); GLUCOSE 103 mg/dL (74-106); POTASSIUM 3.4 mmol/L (3.5-5.1); UREA NITROGEN, BLOOD 24 mg/dL (7-18)
[2017-04-15] MEDS: NAPROXEN 500 MG TABLET PO SCH (08:00)
[2017-04-15] MEDS: CARBIDOPA/LEVODOPA 25-100MG TABLET PO SCH ×3 (08:00→17:26)
[2017-04-15] MEDS: [UNRECOGNIZED DRUG - OTHER] PO SCH (09:00)
[2017-04-15] MEDS: LIDOCAINE 5% PATCH TD SCH (09:00)
[2017-04-15] MEDS: METOPROLOL SUCCINATE XL 25 MG TAB.SR.24H PO SCH (09:00)
[2017-04-15] MEDS: OCUVITE WITH LUTEIN PO SCH (09:00)
[2017-04-15] MEDS: VITAMIN B COMPLEX 1 TABLET PO SCH (09:00)
[2017-04-15] MEDS: LACTOBACILLUS RHAMNOSUS GG 1 EACH CAPSULE PO SCH (09:00)
[2017-04-15] MEDS: GLIMEPIRIDE 4 MG TABLET PO SCH ×2 (10:21→12:00)
[2017-04-15] MEDS: APIXABAN 5 MG TABLET PO SCH ×2 (10:22→20:29)
[2017-04-15] MEDS: PATIENT MAY USE OWN MED- MD OK PO SCH ×2 (10:22→20:36)
[2017-04-15] MEDS ORDERED: POTASSIUM CHLORIDE 10 MEQ CAPSULE.SA PO ONE (11:30)
--- NOTE | 2017-04-15 14:13 | NUR ---
DAILY NOTES PT NOT TAKING MEDS PRESCRIBED. DAUGHTER LETS NURSE KNOW WHAT MEDS TO GIVE PT. STATES HE HAS BEEN NAUSEOUS AND DOESN'T WANT IT TO GET WORSE. Joanne ORDONEZ COMPLEX, CULTURELL ABD LUTEIN AND LOTRIMIN NOT GIVEN OTHER MEDS GIVEN. AFTERNOON MEDS NOT GIVEN YET SHE STATES PT HAD SMALL EMESIS AND IS NOT READY FOR THE MEDS YET. WHEN I ASKED HOW MUCH WAS THE EMESIS SHE SAID IT WAS A SMALL AMT SHE WAS NOT FOR SURE HOW MUCH. I TOLD HER LET ME KNOW WHEN HE IS READY TO TAKE THEM. PT IS ALERT ALSO REFUSING MEDS
--- NOTE | 2017-04-15 14:18 | NUR ---
REHAB TEAM CONFERENCE 04/15/17
[2017-04-15] MEDS: DIGOXIN 125 MCG TABLET PO SCH (14:48)
[2017-04-15] MEDS: COLCHICINE 0.6 MG TABLET PO SCH (14:48)
[2017-04-15] MEDS: LINAGLIPTIN 5 MG TABLET PO SCH (17:26)
[2017-04-15] MEDS: ATORVASTATIN 10 MG TABLET PO SCH (17:26)
[2017-04-15] MEDS: MIRTAZAPINE 15 MG TABLET PO SCH (17:26)
[2017-04-15 20:15] VITALS: BP 149/83
[2017-04-16] MEDS: BLOOD SUGAR DIAGNOSTIC 1 EACH STRIP VI SCH ×4 (06:32→20:30)
--- NOTE | 2017-04-16 07:00 | NUR ---
PT DAUGHTER SAYS PT DIDN'T EAT YESTERDAY DUE TO THE KCL LIQUID GIVEN AND PT BEEN NAUSEATED AND VOMITED,BS 78 MG/DL AND ENCOURAGED TO EAT SNACKS, HAD LITTLE SIPS OF SODA AND WAFER.SLEPT WELL, INCONTINENT OF BLADDER,NO BM.,RECHECKED TEMP 97.9,PER DAUGHTER PT HAD A BIG COUGH AND WORRIED IF PNA CAME BACK ,WILL CONTINUE TO MONITOR, KEPT CLEAN AND DRY.
[2017-04-16] MEDS: APIXABAN 5 MG TABLET PO SCH ×2 (07:57→20:25)
[2017-04-16 08:06] VITALS: BP 151/93
[2017-04-16] MEDS: CARBIDOPA/LEVODOPA 25-100MG TABLET PO SCH ×3 (08:06→18:00)
[2017-04-16] MEDS: GLIMEPIRIDE 4 MG TABLET PO SCH ×2 (08:06→12:00)
[2017-04-16] MEDS: PATIENT MAY USE OWN MED- MD OK PO SCH ×2 (08:07→20:30)
[2017-04-16] MEDS: METOPROLOL SUCCINATE XL 25 MG TAB.SR.24H PO SCH (08:08)
[2017-04-16] MEDS: OCUVITE WITH LUTEIN PO SCH (08:13)
[2017-04-16] MEDS: [UNRECOGNIZED DRUG - OTHER] PO SCH (08:13)
[2017-04-16] MEDS: LIDOCAINE 5% PATCH TD SCH (08:14)
--- NOTE | 2017-04-16 08:30 | NUR ---
Received patient asleep, unlabored breathing. With daughters at bedside. With intact and patent midline g 20 over left hand. Not in any form of distress.
--- NOTE | 2017-04-16 08:57 | NUR ---
Awake and alert no complaints of pain noted. Still with poor oral intake. Encouraged small frequent meals.
--- NOTE | 2017-04-16 11:30 | NUR ---
Tolerated physical therapy well. No complaints of pain at this time. Still with poor oral intake.
[2017-04-16] MEDS: COLCHICINE 0.6 MG TABLET PO SCH (12:05)
[2017-04-16] MEDS: DIGOXIN 125 MCG TABLET PO SCH (12:06)
--- NOTE | 2017-04-16 17:00 | NUR ---
Was able to tolerate a little soup and some fluids with ST at the moment.
[2017-04-16] MEDS: LINAGLIPTIN 5 MG TABLET PO SCH ×2 (18:00→18:28)
[2017-04-16] MEDS: ATORVASTATIN 10 MG TABLET PO SCH (18:28)
[2017-04-16] MEDS: MIRTAZAPINE 15 MG TABLET PO SCH (18:28)
--- NOTE | 2017-04-16 18:30 | NUR ---
Patient's daughter refused Sinemet to be given at this time. Discussed risks and benefits but still refuses.
--- NOTE | 2017-04-16 19:01 | NUR ---
Patient's daughter refused Trajenta for Pt. Blood sugar of 92. Discussed risks and benefits but patient's daughter still refuses.
[2017-04-16 20:05] VITALS: BP 147/83
--- NOTE | 2017-04-17 06:15 | NUR ---
no significant changes overnight,vss,afebrile.slept well,daughter at bedside.
[2017-04-17] MEDS: BLOOD SUGAR DIAGNOSTIC 1 EACH STRIP VI SCH ×4 (06:23→20:54)
[2017-04-17] MEDS: APIXABAN 5 MG TABLET PO SCH ×2 (08:28→20:36)
[2017-04-17] MEDS: GLIMEPIRIDE 4 MG TABLET PO SCH ×2 (08:28→12:19)
[2017-04-17] MEDS: METOPROLOL SUCCINATE XL 25 MG TAB.SR.24H PO SCH (08:28)
[2017-04-17] MEDS: CARBIDOPA/LEVODOPA 25-100MG TABLET PO SCH ×3 (08:28→17:27)
[2017-04-17] MEDS: PATIENT MAY USE OWN MED- MD OK PO SCH ×2 (08:29→20:53)
[2017-04-17] MEDS: OCUVITE WITH LUTEIN PO SCH (08:30)
[2017-04-17] MEDS: [UNRECOGNIZED DRUG - OTHER] PO SCH (08:30)
[2017-04-17] MEDS: LIDOCAINE 5% PATCH TD SCH ×2 (08:31→09:53)
[2017-04-17 08:44] VITALS: BP_SYST 145; BP_SYST 158; BP_DIAS 63; BP_DIAS 86
[2017-04-17] MEDS: ACETAMINOPHEN 325 MG TABLET PO PRN (09:52)
[2017-04-17] MEDS: COLCHICINE 0.6 MG TABLET PO SCH (12:19)
[2017-04-17] MEDS: DIGOXIN 125 MCG TABLET PO SCH (12:25)
[2017-04-17] MEDS: MIRTAZAPINE 15 MG TABLET PO SCH (17:27)
[2017-04-17] MEDS: LINAGLIPTIN 5 MG TABLET PO SCH (17:28)
[2017-04-17] MEDS: ATORVASTATIN 10 MG TABLET PO SCH (17:29)
--- NOTE | 2017-04-17 18:49 | NUR ---
Pt. oob with PT and OT with good tolerance. Poor to fair appetite, pt. reports not liking hospital food. Family at bs throughout shift. Enc CDB and repos. q 2 hrs.
[2017-04-17 20:07] VITALS: BP 146/82
--- NOTE | 2017-04-17 20:30 | NUR ---
Received patient on bed alert and awake. Daughter at bedside during this time. No acute distress noted. Breathing even and unlabored. No c/o pain. Accu check done, 110 mg/dl. Patient's daughter refused the medication Linzess and verbalized "I have a copy of the medications that he has to take and it says here that HOLD LINZESS because we've been trying to cut down some of his medications because he's already taking a lot". Vital signs stable. Call light within reach. All needs attended. will continue to monitor.
--- NOTE | 2017-04-17 23:56 | NUR ---
Patient asleep during this time. No acute distress. No c/o pain. Will continue to monitor.
--- NOTE | 2017-04-18 06:23 | NUR ---
Patient slept well throughout the shift. Daughter still at bedside. No complaints of pain. Breathing even and unlabored. Vital signs stable. Kept clean, dry and comfortable. All needs anticipated. Will continue to monitor.
[2017-04-18] MEDS: BLOOD SUGAR DIAGNOSTIC 1 EACH STRIP VI SCH ×3 (06:38→17:08)
--- NOTE | 2017-04-18 07:10 | NUR ---
RECEIVED REPORT FROM CLERK TELEVISION PRODUCTION NURSE, PATIENT IN BED ASLEEP, NO SOB, NO EVIDENCE OF DISTRESS NOTED. BED IN LOW POSITION, SIDE RAILS UP X2, CALL LIGHT AVAILABLE, DAUGHTER AT BEDSIDE. DISCUSSED PLAN OF CARE FOR THE DAY AND DISCHARGE THIS EVENING.
[2017-04-18 07:56] VITALS: BP 143/95
--- NOTE | 2017-04-18 09:00 | NUR ---
DURING MEDICATION ADMINISTRATION DAUGHTER BART REQUESTED TO HAVE ALL MEDICATION EXCEPT ELIQUIS AND HALF OF NORCO LEFT WITH HER TO ADMINISTER. AFTER VERIFYING WITH CHARGE NURSE ABOUT PROCEDURES, HE INSTRUCTED TO LEAVE MEDICATIONS WITH DAUGHTER.
[2017-04-18] MEDS: LIDOCAINE 5% PATCH TD SCH (09:01)
[2017-04-18] MEDS: HYDROCODONE/APAP 5-325MG TABLET PO PRN (09:03)
[2017-04-18] MEDS: APIXABAN 5 MG TABLET PO SCH (09:07)
[2017-04-18 09:22] VITALS: BP 143/95
[2017-04-18] MEDS: CARBIDOPA/LEVODOPA 25-100MG TABLET PO SCH ×2 (09:22→12:54)
[2017-04-18] MEDS: METOPROLOL SUCCINATE XL 25 MG TAB.SR.24H PO SCH (09:22)
[2017-04-18] MEDS: GLIMEPIRIDE 4 MG TABLET PO SCH ×2 (09:22→12:54)
[2017-04-18] MEDS: PATIENT MAY USE OWN MED- MD OK PO SCH (09:22)
[2017-04-18] MEDS: OCUVITE WITH LUTEIN PO SCH (09:22)
[2017-04-18] MEDS: [UNRECOGNIZED DRUG - OTHER] PO SCH (09:22)
[2017-04-18] MEDS: DIGOXIN 125 MCG TABLET PO SCH (12:53)
[2017-04-18] MEDS: COLCHICINE 0.6 MG TABLET PO SCH (12:53)
[2017-04-18 17:01] LABS: CARBON DIOXIDE 27 mmol/L (21-32); CHLORIDE 105 mmol/L (98-107); CREATININE 2.3 mg/dL (0.6-1.3); GLUCOSE 93 mg/dL (74-106); MAGNESIUM 1.7 mg/dL (1.8-2.4); PHOSPHOROUS 4.1 mg/dL (2.5-4.9); POTASSIUM 3.7 mmol/L (3.5-5.1); UREA NITROGEN, BLOOD 38 mg/dL (7-18)
[2017-04-18] MEDS ORDERED: ATOR10TA PO (17:29)
[2017-04-18] MEDS ORDERED: COLC0.6C3 PO (17:29)
[2017-04-18] MEDS ORDERED: DIGO125T5 PO (17:29)
[2017-04-18] MEDS ORDERED: LINA5TAB PO (17:29)
[2017-04-18] MEDS ORDERED: CARB1TAB21 PO ×2 (17:29)
[2017-04-18] MEDS ORDERED: MIRT15TA7 PO (17:29)
[2017-04-18] MEDS ORDERED: ACET325T53 PO (17:29)
[2017-04-18] MEDS ORDERED: GLIM4TAB PO (17:29)
[2017-04-18] MEDS ORDERED: LIDO30AD10 TD (17:29)
[2017-04-18] MEDS ORDERED: Colchicine PO (17:29)
[2017-04-18] MEDS ORDERED: METO-302 PO (17:29)
[2017-04-18] MEDS ORDERED: APIX5TAB PO (17:29)
--- NOTE | 2017-04-18 17:53 | NUR ---
Assisted attending RN with patient's discharge. All belongings verified with patient and family members. All discharge instructions reviewed and acknowledged by patient and his family members. Prescriptions given to patient's daughter, who handles her father's medication regimen. Patient was transferred safely with assistance to wheelchair. Patient discharged, all safety precautions maintained.
== END 2017-04-18 17:40 | disposition home health service (06) | DRG 56 ==
LOC: SA1 14:51
PROVIDERS: ATTEND Physical Medicine & Rehabilitation Pain Medicine
DX: I69.354 Hemiplegia and hemiparesis following cerebral infarction affecting left non-dominant side (principal); G93.40 Encephalopathy, unspecified; J18.9 Pneumonia, unspecified organism; D68.59 Other primary thrombophilia; D69.6 Thrombocytopenia, unspecified; G20 Parkinson's disease; R13.10 Dysphagia, unspecified; I11.9 Hypertensive heart disease without heart failure; N39.0 Urinary tract infection, site not specified; J98.11 Atelectasis; R41.4 Neurologic neglect syndrome; I69.322 Dysarthria following cerebral infarction; I69.391 Dysphagia following cerebral infarction; E11.9 Type 2 diabetes mellitus without complications; I25.10 Atherosclerotic heart disease of native coronary artery without angina pectoris; I69.398 Other sequelae of cerebral infarction; I48.2 Chronic atrial fibrillation; I70.0 Atherosclerosis of aorta; Z79.01 Long term (current) use of anticoagulants; Z95.1 Presence of aortocoronary bypass graft; R26.9 Unspecified abnormalities of gait and mobility; I69.392 Facial weakness following cerebral infarction; H53.47 Heteronymous bilateral field defects; B96.20 Unspecified Escherichia coli [E. coli] as the cause of diseases classified elsewhere; E53.8 Deficiency of other specified B group vitamins; E78.5 Hyperlipidemia, unspecified; G47.00 Insomnia, unspecified; H11.32 Conjunctival hemorrhage, left eye; M54.2 Cervicalgia; R19.7 Diarrhea, unspecified; R63.0 Anorexia; D53.9 Nutritional anemia, unspecified; M11.271 Other chondrocalcinosis, right ankle and foot; M25.774 Osteophyte, right foot
CPT/HCPCS: 36415; 36569; 70450; 70551; 71010; 73630; 74230; 82306; 83735; 84100; 85025; 85610; 87040; 87070; 87077; 87086; 92526; 92610; 92611; 97110; 97112; 97116; 97161; 97530; 97535; A4663; J0696; J1450; J2543; J3370; J3420; J3490; J7030; J7060; Q0163